=== PATIENT | male | born 1955 | race Hispanic/Latino ===

== ENCOUNTER 2018-04-13 19:34 | Observation (INO) | payer OTHER ==
[~2018-04-13] VITALS: Ht 177.8 cm; Wt 131.1 kg
[~2018-04-13 19:34] MED LIST: ASPIRIN BUFFER325 MG PO; ASPIRIN CHEW81 MG PO; ASPIRIN325 MG PO; BENICAR20 MG PO; COREG12.5 MG PO; COREG3.125 MG PO; CRESTOR10 MG PO; DIOVAN40 MG PO; HYDRALAZINE HCL25 MG PO; IMDUR30 MG PO; ISM30TCR PO; LEVAQUIN750 MG PO; LRT10 PO; MUCDM PO; PACERONE200 MG PO; PEPCID20 MG PO; PLAVIX75 MG PO; PRAVACHOL40 MG PO; PRAVASTATIN SOD40 MG PO; PREDNISONE20 MG PO; ZOCOR20 MG PO; [UNRECOGNIZED DRUG - CODE] NEB
[2018-04-13 20:49] LABS: BASOPHILS # (AUTO) 0.1 (0.0-0.1); BASOPHILS % 0.6 % (0.0-1.0); EOSINOPHILS # (AUTO) 0.2 (0.0-0.4); EOSINOPHILS % 2.2 % (0.0-6.0); HEMATOCRIT 40.8 % (38.2-49.6); HEMOGLOBIN 13.2 g/dL (14.0-18.0); LYMPHOCYTES # (AUTO) 1.8 (1.0-3.2); LYMPHOCYTES % 19.6 % (18.0-39.1); MEAN CORPUSCULAR HEMOGLOBIN 30.6 pg (28-32); MEAN CORPUSCULAR HGB CONC 32.4 g/dL (31-35); MEAN CORPUSCULAR VOLUME 94.4 fL (81-99); MONOCYTES # (AUTO) 0.7 (0.2-0.8); MONOCYTES % 7.5 % (4.4-11.3); NEUTROPHILS # (AUTO) 6.3 (2.1-6.9); NEUTROPHILS % 69.7 % (38.7-80.0); PLATELET COUNT 215 x10e3/uL (140-360); RED BLOOD COUNT 4.32 x10e6/uL (4.3-5.7); RED CELL DISTRIBUTION WIDTH 14.4 % (11.7-14.4)
[2018-04-13 20:59] LABS: INR 1.04; PARTIAL THROMBOPLASTIN TIME 28.8 seconds (23.8-35.5); PROTHROMBIN TIME 12.8 seconds (11.9-14.5)
--- NOTE | 2018-04-13 21:03 | Diagnostic Imaging Report ---
EXAMINATION: CHEST SINGLE (PORTABLE) INDICATION: Chest pain. COMPARISON: Chest x-ray 05/14/2013. FINDINGS: AP view TUBES and LINES: None. LUNGS: Lungs are well inflated. Lungs are clear. There is no evidence of pneumonia or pulmonary edema. PLEURA: No pleural effusion or pneumothorax. HEART AND MEDIASTINUM: The cardiomediastinal silhouette is unremarkable. BONES AND SOFT TISSUES: No acute osseous lesion. Soft tissues are unremarkable. UPPER ABDOMEN: No free air under the diaphragm. IMPRESSION: No acute thoracic abnormality. Signed by: Dr. Jovon Devine M.D. on 04/13/2018 9:00 PM
[2018-04-13 21:11] LABS: ALANINE AMINOTRANSFERASE 17 IU/L (0-55); ALBUMIN 3.7 g/dL (3.5-5.0); ALBUMIN/GLOBULIN RATIO 1.2 (0.8-2.0); ALKALINE PHOSPHATASE 75 IU/L (40-150); ANION GAP 14.4 mmol/L (8-16); BLOOD UREA NITROGEN 13 mg/dL (7-26); BUN/CREATININE RATIO 11 (6-25); CALCIUM 9.4 mg/dL (8.4-10.2); CARBON DIOXIDE 26 mmol/L (22-29); CHLORIDE 108 mmol/L (98-107); CREATINE KINASE 71 IU/L (30-200); CREATININE, SERUM 1.22 mg/dL (0.72-1.25); EST GLOMERULAR FILTRATION RATE 60 ML/MIN (60-); GLUCOSE 112 mg/dL (74-118); POTASSIUM 4.4 mmol/L (3.5-5.1); SODIUM 144 mmol/L (136-145)
[2018-04-13] MEDS ORDERED: DEXTROSE 50% SYRINGE 50 ML IV PRN (23:30)
[2018-04-13] MEDS ORDERED: NITROGLYCERIN 0.4 MG SUBL SL PRN (23:30)
[2018-04-13] MEDS ORDERED: ASPIRIN 81 MG CHEW TAB PO ONE (23:30)
[2018-04-13] MEDS ORDERED: SODIUM CHLORIDE FLUSH 10 ML SYR INJ PRN (23:30)
[2018-04-13] MEDS ORDERED: ASPIRIN 81 MG ENTERIC COATED PO ONE (23:38)
[2018-04-13] MEDS ORDERED: BENICAR20 MG PO (23:45)
[2018-04-14 00:45] VITALS: BP 138/62
[2018-04-14 04:00] VITALS: BP 122/63
[2018-04-14] MEDS: GUAIFENESIN 600MG/DEXTROMETHORPHAN 30MG TABSR PO SCH ×2 (05:01→13:26)
[2018-04-14 05:47] LABS: CHOL/HDL RATIO 12.8 (3.9-4.7); CHOLESTEROL 115 MD/DL (0-199); HDL CHOLESTEROL 9 MG/DL (40-60); LDL CHOLESTEROL 85 MG/DL (60-130); TRIGLYCERIDES 106 MG/DL (0-149)
[2018-04-14 06:01] VITALS: BP 122/63
[2018-04-14 06:18] LABS: CREATINE KINASE 52 IU/L (30-200)
[2018-04-14] MEDS: ALBUTEROL/IPRATROPIUM 3 ML NEB NEB SCH ×2 (06:45→11:35)
[2018-04-14] MEDS: INSULIN REGULAR, HUMAN 100 UNIT/1 ML 3ML VIAL SQ SCH ×2 (07:30→11:30)
[2018-04-14 08:00] VITALS: BP 154/92
[2018-04-14 08:17] VITALS: BP 154/92
--- NOTE | 2018-04-14 08:19 | Consultation ---
DATE OF CONSULTATION: April 14, 2018 REASON FOR CONSULTATION: Shortness of breath and chest pain. HISTORY OF PRESENT ILLNESS: Mr. Yuen is a 63-year-old gentleman with a past medical history as listed below. Apparently, he was a restaurant eating and had some gumbo. About 30 minutes after he ate gumbo, he became short of breath. The patient states he did not have chest pain, although he had mentioned that he had chest pain in the ER. It was mainly shortness of breath. A couple of hours later, he felt better and actually wanted to go home. He states he feels great now, and is keen on going home. Denies any further shortness of breath. No leg edema. No abdominal pain, vomiting or diarrhea. He states he has no chest pain and did not actually have chest pain. REVIEW OF SYSTEMS CONSTITUTIONAL: He has some fatigue and weakness. HEENT: No headache, blurring of vision, seizures, or syncope. CARDIOVASCULAR: Questionable chest pain although the patient denies that he had chest pain at the current time. Had dyspnea. No orthopnea or PND. RESPIRATORY: No cough, fever or expectoration. GI: No abdominal pain, vomiting or diarrhea. : No dysuria, frequency or incontinence. ALLERGIES: MORPHINE, PENICILLIN, ANN INHIBITORS, METRONIDAZOLE. MEDICATIONS: See list. PAST MEDICAL HISTORY: History of hypertension, history of CAD. Had a stent about 5 years back. Had a cath apparently a couple of years back. History of diabetes mellitus, history of CHF. SOCIAL HISTORY: Does not smoke or drink. FAMILY HISTORY: Hypertension, diabetes and CAD. PHYSICAL EXAMINATION GENERAL: Obese gentleman alert, oriented and not in any obvious distress. VITALS: Heart rate is 73, blood pressure is 122/63, respiratory rate 18. HEENT: Atraumatic. NECK: No JVD, bruit, thyromegaly, or lymphadenopathy. CARDIOVASCULAR: First and 2nd heart sounds heard. No murmurs, rubs or gallops appreciated. CHEST: Clear to auscultation. ABDOMEN: Soft and nontender. EXTREMITIES: No edema. LABS: Sodium is 144, potassium 4.4, chloride 108, bicarb is 26, BUN 13, creatinine 1.2. Hemoglobin 13.2, hematocrit 40.8 and platelets are 215,000. White count is 9. EKG shows sinus rhythm at 76 beats per minute. Normal axis. Normal intervals. R-wave progression in V1 to V4. Nonspecific ST-T changes. Small Q-waves in inferior leads. Cardiac enzymes are normal. IMPRESSION 1. Dyspnea. 2. Coronary artery disease with history of stent placement. 3. Hypertension. 4. Diabetes mellitus. 5. Obesity. PLAN 1. Patient states that he had shortness of breath and no chest pain. He states he feels fine now. No further episodes. He is keen on going home. Clinically, the patient is not in CHF. 2. Cardiac enzymes are normal. 3. He is otherwise hemodynamically stable. 4. Okay to discharge the patient home, and he can follow up as an outpatient. Discussed my impression and plan of management with the patient and he understands. As always, I appreciate and thank you very much for your referral. Job#: [id number] MATTEO
[2018-04-14] MEDS ORDERED: ISOSORBIDE MONONITRATE 30 MG TAB CR PO SCH (09:00)
[2018-04-14] MEDS ORDERED: OLMESARTAN MEDOXOMIL 5 MG TABLET PO SCH (09:00)
[2018-04-14] MEDS ORDERED: CARVEDILOL 3.125 MG TAB PO SCH (09:00)
[2018-04-14] MEDS ORDERED: ASPIRIN 81 MG ENTERIC COATED PO SCH (09:00)
[2018-04-14] MEDS ORDERED: PRAVASTATIN 20 MG TAB PO SCH (09:00)
[2018-04-14] MEDS ORDERED: CLOPIDOGREL BISULFATE 75 MG TAB PO SCH (09:00)
[2018-04-14] MEDS ORDERED: ASPIRIN 81 MG CHEW TAB PO SCH (09:00)
[2018-04-14] MEDS ORDERED: LORATADINE 10 MG TAB PO SCH (09:00)
[2018-04-14] MEDS ORDERED: OLMESARTAN 20 MG TAB PO SCH (11:00)
[2018-04-14 12:11] VITALS: BP 124/79
--- NOTE | 2018-04-14 20:43 | Discharge Summary ---
PRINCIPAL DIAGNOSES: 1. Atypical chest pain. 2. Coronary artery disease with history of stent. 3. Hypertension. 4. Morbid obesity. 5. Hyperlipidemia. SECONDARY DIAGNOSIS: Hypertension. CHIEF COMPLAINT: Chest pain. HISTORY OF PRESENT ILLNESS: A 63-year-old man with chest pain. Please refer to the H and P for further details. HOSPITAL COURSE: Patient found to have negative cardiac enzymes. LDL and triglycerides were obtained. Blood pressure controlled. Patient's LDL was 85, triglycerides 106. Patient discharged home after cleared by cardiology. DISCHARGE MEDICATIONS: Per electronic medical record. FOLLOWUP: 1. Follow up with primary care doctor in 1 week. 2. Follow up with cardiology in 1 to 2 weeks. CONDITION ON DISCHARGE: Stable. DISCHARGE LOCATION: Home. TERE MORRELL MD Job#: [id number]
--- NOTE | 2018-04-14 21:02 | History and Physical ---
PRIMARY CARE PHYSICIAN: Dr. Shadi Blanco. CHIEF COMPLAINT: Chest discomfort. HISTORY OF PRESENT ILLNESS: A 63-year-old man with a history of coronary artery disease, now developing chest discomfort. He came to the hospital with mild shortness of breath. He was found to have cardiac enzymes negative. He was admitted for further testing. PAST MEDICAL HISTORY: Coronary artery disease, status post stent, hypertension, hyperlipidemia, atrial fibrillation. PAST SURGICAL HISTORY: Coronary stent placement x3. ALLERGIES: PER ELECTRONIC MEDICAL RECORDS. FAMILY AND SOCIAL HISTORY: The patient denies any alcohol, illicits or cigarettes. MEDICATIONS: Per electronic medical records. REVIEW OF SYSTEMS: Denies any dizziness or shortness of breath, fever or chills or sweats, no nausea, vomiting or diarrhea, headache or blurred vision. PHYSICAL EXAMINATION VITAL SIGNS: Reviewed. GENERAL APPEARANCE: A tired-appearing man resting in the bed. HEENT: Anicteric. Pupils responsive to light. No oral lesions. CARDIOVASCULAR: Normal S1 and S2. LUNGS: Moderate breath sounds, ABDOMEN: Soft and nontender. Nondistended. EXTREMITIES: There is no edema or calf tenderness. NEUROLOGIC: Alert and oriented x3. Moving all extremities. SKIN: Dry. PSYCHIATRIC: Flat affect. LABS: Reviewed. MEDICATIONS: Reviewed. ASSESSMENT: A 63-year-old man. 1. Coronary artery disease with history of stents. 2. Hypertension. 3. Hyperlipidemia. 4. Morbid obesity. 5. Atypical chest pain. PLAN: 1. Cardiac enzymes negative x3. 2. Cleared by cardiology for discharge. 3. LDL was 85, triglycerides 106. 4. The patient on beta shagufta, Plavix, ARB, statin and antihypertensive medication. Likely discharge home later today. Job#: [id number]
== END 2018-04-14 15:33 | disposition home or self-care (01) ==
LOC: ER 19:34 → ERHOLD 23:55 → IMCU 04-14 00:34
PROVIDERS: ADMIT Internal Medicine; ATTEND Internal Medicine
DX: R07.89 Other chest pain (principal); I25.10 Atherosclerotic heart disease of native coronary artery without angina pectoris; E11.9 Type 2 diabetes mellitus without complications; I11.0 Hypertensive heart disease with heart failure; I50.9 Heart failure, unspecified; I25.2 Old myocardial infarction; Z95.5 Presence of coronary angioplasty implant and graft; I48.91 Unspecified atrial fibrillation; E66.01 Morbid (severe) obesity due to excess calories; E78.5 Hyperlipidemia, unspecified; Z68.41 Body mass index [BMI] 40.0-44.9, adult
CPT/HCPCS: 36415 ×2; 71045; 80053; 80061; 82550 ×2; 82553 ×2; 82948; 84484 ×2; 85025; 85610; 85730; 93005; 94640 ×2; 99284; G0378 ×2

== ENCOUNTER 2019-06-15 14:33 | Inpatient (IN) | payer OTHER ==
[~2019-06-15] VITALS: Ht 177.8 cm; Wt 121.1 kg
[2019-06-15] MEDS ORDERED: ASPIRIN 81 MG CHEW TAB PO ONE (14:45)
[2019-06-15 14:57] LABS: BASOPHILS % 0.3 % (0.0-1.0); EOSINOPHILS # (AUTO) 0.3 (0.0-0.4); EOSINOPHILS % 2.5 % (0.0-6.0); HEMATOCRIT 40.6 % (38.2-49.6); HEMOGLOBIN 13.2 g/dL (14.0-18.0); LYMPHOCYTES % 17.3 % (18.0-39.1); MEAN CORPUSCULAR HEMOGLOBIN 30.1 pg (28-32); MEAN CORPUSCULAR HGB CONC 32.5 g/dL (31-35); MEAN CORPUSCULAR VOLUME 92.7 fL (81-99); MONOCYTES # (AUTO) 0.8 (0.2-0.8); MONOCYTES % 6.6 % (4.4-11.3); NEUTROPHILS # (AUTO) 8.6 (2.1-6.9); NEUTROPHILS % 72.9 % (38.7-80.0); PLATELET COUNT 257 x10e3/uL (140-360); RED BLOOD COUNT 4.38 x10e6/uL (4.3-5.7); RED CELL DISTRIBUTION WIDTH 15.2 % (11.7-14.4)
[2019-06-15 15:04] LABS: INR 0.88; PROTHROMBIN TIME 12.4 seconds (11.9-14.5)
[2019-06-15 15:05] LABS: PARTIAL THROMBOPLASTIN TIME 31.4 seconds (23.8-35.5)
[2019-06-15] MEDS ORDERED: SODIUM CHLORIDE 0.9% 1000ML 1,000 ML IV STA (15:09)
[2019-06-15] MEDS ORDERED: MORPHINE SULFATE 2 MG/ML SYR 1ML IV STA (15:09)
[2019-06-15 15:13] LABS: BILIRUBIN,URINE NEGATIVE (NEGATIVE); CLARITY,URINE CLEAR (CLEAR); COLOR,URINE YELLOW (YELLOW); KETONES,URINE NEGATIVE (NEGATIVE); LEUKOCYTE ESTERASE ,URINE NEGATIVE (NEGATIVE); NITRITE,URINE NEGATIVE (NEGATIVE); PROTEIN,URINE DIPSTICK NEGATIVE (NEGATIVE); URINE UROBILINOGEN 0.2 mg/dL (0.2 - 1)
[2019-06-15 15:13] LABS: ALBUMIN 3.8 g/dL (3.5-5.0); CALCIUM 9.6 mg/dL (8.4-10.2); CREATININE, SERUM 1.27 mg/dL (0.72-1.25)
[2019-06-15] MEDS ORDERED: PANTOPRAZOLE 40 MG 10ML VIAL IV NR (15:15)
[2019-06-15] MEDS ORDERED: ONDANSETRON HCL INJ 2MG/ML 2ML 2 MG/ML VIAL IV NR (15:15)
[2019-06-15 15:19] LABS: CREATINE KINASE MB 1.4 ng/mL (0-5.0)
[2019-06-15] MEDS ORDERED: ASPIRIN 81 MG CHEW TAB PO NR (15:30)
[2019-06-15] MEDS ORDERED: ONDANSETRON HCL INJ 2MG/ML 2ML 2 MG/ML VIAL IV PRN (15:30)
[2019-06-15] MEDS ORDERED: NITROGLYCERIN 0.4 MG SUBL SL PRN (15:30)
[2019-06-15] MEDS ORDERED: DEXTROSE 50% SYRINGE 50 ML IV PRN ×2 (15:30→18:00)
[2019-06-15] MEDS ORDERED: ENOXAPARIN SODIUM INJ 100 MG/ML SYR SC SCH (15:30)
[2019-06-15 15:32] LABS: BACTERIA,URINE FEW /HPF; WBC,URINE (MAN) 0-5 /HPF (0-5)
[2019-06-15 15:33] LABS: MUCUS,URINE MODERATE (RARE)
[2019-06-15 15:50] LABS: MAGNESIUM 2.2 MG/DL (1.3-2.1)
--- NOTE | 2019-06-15 16:00 | Diagnostic Imaging Report ---
Chest, 1 view, 06/15/2019. History: Chest pain. Comparison: 04/13/2018. Findings: The cardiomediastinal silhouette and pulmonary vasculature are within normal limits for a portable exam. There is no focal consolidation or pleural effusion. There are no acute osseous or soft tissue abnormalities. Impression: No acute cardiopulmonary abnormality. Signed by: Aron Parks on 06/15/2019 3:57 PM
[2019-06-15 16:10] LABS: THYROID STIMULATING HORMONE 4.299 uIU/mL (0.350-4.940)
[2019-06-15] MEDS: METOPROLOL TARTRATE 25 MG TAB PO SCH (16:20)
[2019-06-15] MEDS: FAMOTIDINE 20 MG/2 ML VIAL IV SCH (16:20)
[2019-06-15] MEDS: ENOXAPARIN SODIUM INJ 100 MG/ML SYR SC SCH (16:21)
[2019-06-15] MEDS ORDERED: INSULIN REGULAR, HUMAN 100 UNIT/1 ML 3ML VIAL SQ SCH (16:30)
[2019-06-15] MEDS ORDERED: LEVALBUTEROL HCL SOLN NEBU 0.63 MG/3 ML NEB INH PRN (17:45)
[2019-06-15] MEDS ORDERED: POLYETHYLENE GLYCOL 3350 17 GM PACK PO PRN (18:00)
[2019-06-15] MEDS ORDERED: BISACODYL 5 MG TAB EC PO PRN (18:00)
[2019-06-15] MEDS ORDERED: FENTANYL CITRATE/PF 100MCG/2 ML INJ IV SCH (18:00)
--- NOTE | 2019-06-15 18:18 | NUR ---
Received patient from ER. Respiration even and unlabored without SOB. Awake, alert.
[2019-06-15 18:22] VITALS: BP 136/77
[2019-06-15 18:46] VITALS: BP 136/77
[2019-06-15] MEDS ORDERED: FENTANYL CITRATE/PF 100MCG/2 ML INJ IV PRN (19:00)
[2019-06-15] MEDS: CARVEDILOL 3.125 MG TAB PO SCH (19:03)
--- NOTE | 2019-06-15 19:12 | NUR ---
Report given to security shift supervisor. Respiration even and unlabored without SOB. Call light in reach.
[2019-06-15 20:00] VITALS: BP 127/73
--- NOTE | 2019-06-15 20:00 | NUR ---
pt received. pt assessed. no ss of distress noted. tele in place per orders. no co pain at time. will cont to follow poc. call burk within reach.
[2019-06-15 20:08] VITALS: BP 127/73
[2019-06-15] MEDS ORDERED: PRAVASTATIN 20 MG TAB PO SCH (21:00)
--- NOTE | 2019-06-15 22:08 | NUR ---
spoke to lul barney for dr trejo in regards to insulin. new orders received.
[2019-06-15] MEDS: INSULIN REGULAR, HUMAN 100 UNIT/1 ML 3ML VIAL SQ SCH (22:17)
--- NOTE | 2019-06-15 22:27 | NUR ---
Cardiology Consult Dictation# [id number]
[2019-06-15] MEDS ORDERED: SODIUM CHLORIDE 0.9% 1000ML 1,000 ML IV SCH (22:30)
--- NOTE | 2019-06-15 22:44 | NUR ---
blood collected and sent to lab per orders. pt tolerated well. no distress noted. call burk within reach.
--- NOTE | 2019-06-15 22:48 | NUR ---
consent signed at time. no ss of distress noted. call burk within reach.
--- NOTE | 2019-06-15 23:10 | NUR ---
spoke to radiology in regards to ct. spoke to dr guerrero regarding ct orders. ok to do ct in am 06/16/19 after labs. notified radiology of md orders.
[2019-06-15 23:24] LABS: CREATINE KINASE MB 2.3 ng/mL (0-5.0)
[2019-06-15 23:58] VITALS: BP 124/64
[2019-06-16] VITALS (13 sets, daily range): BP systolic 130–174; BP diastolic 63–89
--- NOTE | 2019-06-16 00:06 | NUR ---
pt made npo at time per orders. pt verbalized understanding. no ss of distress noted. call burk within reach.
[2019-06-16] MEDS: METOPROLOL TARTRATE 25 MG TAB PO SCH (04:00)
[2019-06-16] MEDS: FAMOTIDINE 20 MG/2 ML VIAL IV SCH (04:48)
[2019-06-16] MEDS: ENOXAPARIN SODIUM INJ 100 MG/ML SYR SC SCH (05:01)
--- NOTE | 2019-06-16 05:15 | NUR ---
tele leads replaced at time. no distress noted. call burk within reach.
[2019-06-16 05:38] LABS: BASOPHILS # (AUTO) 0.1 (0.0-0.1); BASOPHILS % 0.5 % (0.0-1.0); EOSINOPHILS # (AUTO) 0.3 (0.0-0.4); EOSINOPHILS % 2.5 % (0.0-6.0); HEMATOCRIT 37.5 % (38.2-49.6); HEMOGLOBIN 12.1 g/dL (14.0-18.0); LYMPHOCYTES # (AUTO) 2.1 (1.0-3.2); LYMPHOCYTES % 19.8 % (18.0-39.1); MEAN CORPUSCULAR HEMOGLOBIN 30.1 pg (28-32); MEAN CORPUSCULAR HGB CONC 32.3 g/dL (31-35); MEAN CORPUSCULAR VOLUME 93.3 fL (81-99); MONOCYTES # (AUTO) 0.9 (0.2-0.8); NEUTROPHILS # (AUTO) 7.3 (2.1-6.9); NEUTROPHILS % 68.7 % (38.7-80.0); PLATELET COUNT 223 x10e3/uL (140-360); RED BLOOD COUNT 4.02 x10e6/uL (4.3-5.7); RED CELL DISTRIBUTION WIDTH 15.4 % (11.7-14.4)
--- NOTE | 2019-06-16 05:48 | Consultation ---
DATE OF CONSULTATION: 06/15/2019 Cardiology Consultation REQUESTING PHYSICIAN: Dr. Storey. REASON FOR CONSULTATION: Chest pain. HISTORY OF PRESENT ILLNESS: This is a 64-year-old male with history of coronary artery disease status post myocardial infarction x2 and PCI x3, congestive heart failure, hypertension, hyperlipidemia, diabetes mellitus, and chronic kidney disease, who presents with complaints of chest pain. The patient reports he had been walking to the car from [place] when he developed sudden onset of dyspnea and chest pressure, described it as 10/10 in severity with radiation to the back. His chest pain lasted over an hour before eventually resolving after taking three sublingual nitroglycerin. He does endorse orthopnea for the last couple of weeks, but denies any edema or PND. REVIEW OF SYSTEMS: Negative except as per HPI. PAST MEDICAL HISTORY: 1. Coronary artery disease, status post stent and myocardial infarction. 2. Congestive heart failure. 3. Hypertension. 4. Hyperlipidemia. 5. Diabetes mellitus. 6. Chronic kidney disease. PAST SURGICAL HISTORY: Denies. ALLERGIES: PLEASE SEE EMR. MEDICATIONS: Please see medication list. SOCIAL HISTORY: Denies tobacco, alcohol, or illicit drugs. FAMILY HISTORY: Pertinent for mother who of myocardial infarction at age of 67. PHYSICAL EXAMINATION: VITAL SIGNS: Temperature 97.8 degrees, pulse 97, respiratory rate 17, blood pressure 136/72, and oxygen saturation 96% on room air. GENERAL: Awake, alert, well-developed, well-nourished man. HEENT: Normocephalic and atraumatic. Pupils equal. No scleral icterus. NECK: Supple. No thyromegaly or cervical lymphadenopathy. No carotid bruits. LUNGS: Clear to auscultation bilaterally. No wheezes or crackles. CARDIOVASCULAR: Normal rate. Regular rhythm. No murmur. Normal S1 and S2. ABDOMEN: Soft and nontender. EXTREMITIES: No edema. NEUROLOGIC: Nonfocal exam. LABORATORY DATA: WBC 11.8, hemoglobin 13.2, hematocrit 40.6, and platelets 257. Potassium 4, chloride 104, CO2 of 26, BUN 23, and creatinine 0.27. Troponin less than 0.002. BNP 33.2. Chest x-ray, no acute cardiopulmonary abnormality. EKG, normal sinus rhythm, inferior infarct, age undetermined. Cannot rule out anterior infarct, age undetermined. IMPRESSION: 1. Chest pain. 2. Coronary artery disease, status post myocardial infarction. 3. Congestive heart failure. 4. Hypertension. 5. Hyperlipidemia. 6. Diabetes mellitus. RECOMMENDATIONS: Trend cardiac markers to rule out myocardial infarction. Monitor the patient on telemetry and do an echocardiogram. CTA of the chest to evaluate for aortic dissection if he rules out for myocardial infarction. Continue home cardiac medications. Thank you for this consult. We will continue to follow. Samina Guillory MD ABS/MODL /[id number] MTDD
[2019-06-16 06:03] LABS: CREATINE KINASE MB 2.3 ng/mL (0-5.0)
[2019-06-16 06:36] LABS: ALBUMIN 3.5 g/dL (3.5-5.0); ALBUMIN/GLOBULIN RATIO 1.1 (0.8-2.0); ANION GAP 16.9 mmol/L (8-16); CALCIUM 9.1 mg/dL (8.4-10.2); CHOL/HDL RATIO 5.2 (3.9-4.7); CREATININE, SERUM 1.26 mg/dL (0.72-1.25); PHOSPHORUS 3.1 MG/DL (2.3-4.7); POTASSIUM 3.9 mmol/L (3.5-5.1)
--- NOTE | 2019-06-16 06:57 | NUR ---
dr guerrero paged at time regarding lab results. awaiting return phone call. primary nurse made aware.
--- NOTE | 2019-06-16 07:04 | NUR ---
Received patient sitting on the bed, respiration even and unlabored without SOB. Call light in reach.
[2019-06-16] MEDS: INSULIN REGULAR, HUMAN 100 UNIT/1 ML 3ML VIAL SQ SCH ×4 (07:30→20:09)
--- NOTE | 2019-06-16 08:25 | NUR ---
Spoke with Dr. Guillory regarding CTA scan and GFR level per radiology. New order to hold off on CTA for now and stop fluids. Order noted and informed radiology
[2019-06-16] MEDS ORDERED: ONDANSETRON HCL 4 MG ORAL DISINTEGRATING TAB PO PRN (08:30)
[2019-06-16] MEDS: ASPIRIN 81 MG ENTERIC COATED PO SCH (09:00)
[2019-06-16] MEDS: OLMESARTAN 20 MG TAB PO SCH (09:00)
[2019-06-16] MEDS: ISOSORBIDE MONONITRATE 30 MG TAB CR PO SCH (09:00)
[2019-06-16] MEDS: CARVEDILOL 3.125 MG TAB PO SCH (09:00)
[2019-06-16] MEDS ORDERED: ASPIRIN 81 MG CHEW TAB PO SCH (09:00)
[2019-06-16] MEDS: LORATADINE 10 MG TAB PO SCH (09:00)
[2019-06-16] MEDS ORDERED: CLOPIDOGREL BISULFATE 75 MG TAB PO SCH (09:00)
[2019-06-16] MEDS: CLOPIDOGREL BISULFATE 75 MG TAB PO SCH (09:00)
[2019-06-16] MEDS: DOCUSATE SODIUM 100 MG CAP PO SCH ×2 (09:00→17:38)
--- NOTE | 2019-06-16 09:20 | NUR ---
Dr. Guillory called and informed to hold off on stress test at this time and patient may need a heart cath
[2019-06-16] MEDS ORDERED: CARVEDILOL12.5 MG PO (09:23)
[2019-06-16] MEDS ORDERED: ATORVASTATIN CA20 MG PO (09:24)
[2019-06-16] MEDS ORDERED: LASIX40 MG PO (09:25)
[2019-06-16] MEDS ORDERED: METFORMIN HCL500 MG PO (09:26)
[2019-06-16] MEDS ORDERED: HEPARIN SOD (PORCINE) 1000 UNIT/ML 30ML ONE (11:36)
[2019-06-16] MEDS ORDERED: FENTANYL CITRATE/PF 100MCG/2 ML INJ ONE (11:37)
[2019-06-16] MEDS ORDERED: MIDAZOLAM HCL 2 MG/2 ML VIAL ONE (11:37)
[2019-06-16] MEDS ORDERED: VERAPAMIL HCL 2.5 MG/ML 2 ML VIAL ONE (11:37)
[2019-06-16] MEDS ORDERED: LIDOCAINE HCL 2% LOCAL 20 ML VIAL ONE (11:37)
[2019-06-16] MEDS ORDERED: IOPAMIDOL 370 MG/ML 200 ML INFUS..BTL INJ ONE (11:38)
[2019-06-16] MEDS ORDERED: SODIUM CHLORIDE 0.9% 1000ML 1,000 ML ONE (11:38)
[2019-06-16] MEDS ORDERED: HEPARIN SOD/SOD CHLORIDE 2,000 ML ONE (11:38)
[2019-06-16] MEDS ORDERED: NITROGLYCERIN/D5W 200 MCG/ML 250 ML ONE (11:38)
--- NOTE | 2019-06-16 12:15 | NUR ---
Patient went to heart cath at this time
--- NOTE | 2019-06-16 13:00 | NUR ---
Continuity of care post procedure, review of procedural findings and medications given. Patient drowsy, easily aroused. maintains airway and room air saturations of 98-99%. No gross issues of pressure, pain, pallor or dysrhythmia. IV site patent with NS 0.9% at KVO by dial-flow. patient hemodynamically stable with hemostasis right radial TR band CDI w/o s/s of bleeding. [facility] w/o incident. [facility] [place] [facility] [place] Coronary [place] and WES to Circumflex Sheath puller: Don LOCK FITTER - Large TR band 14ml Meds Given Intra-Procedure Sedatives Versed - 2 mg Fentanyl - 50 mcg Radial Cocktail IA by Heparin - 3000 Units Nitro - 200mcg Verapamil - 2.5mg Anticoagulants Heparin - 9000 units Fluids Input - 300ml Output - dtv Contrast Isovue 370 - 125ml Other Meds Plavix 300mg Aspirin 325mg
[2019-06-16] MEDS ORDERED: CLOPIDOGREL BISULFATE 75 MG TAB ONE (13:05)
[2019-06-16] MEDS ORDERED: ASPIRIN 325 MG TAB ONE (13:05)
--- NOTE | 2019-06-16 15:10 | NUR ---
TR Band successfully deflated over past 45 minutes. clean dressing applied aseptically. education provided and pt repeated back to treat wrist as broken, and not to push/pull/submerge fo 1 week.
--- NOTE | 2019-06-16 15:30 | NUR ---
telephone report provided to Jessica CHIANG. Alert oriented and appropriate, PERRLA, respirations even and unlabored to room air. Pulses x4 extremities equal and strong. Cap fill brisk < 3 sec. + neurovascular function to right hand Skin warm and dry integrity appears intact overall . IV 20g to right AC area presents healthy w/o s/s of infiltration or complaint. Abdomen soft and supple. pt offered toileting, denies need to urinate or defecate. No personal affects with patient. Family not available. Pt verbalizes understanding of POC. Dr Guillory with patient at this time. Patient transferred from PACU 20 back to MS1-100 by general labor escort on bed, telemetry pack in use. Currently w/o complaint of pain or need. right radial dressing CDI- cgf
--- NOTE | 2019-06-16 15:30 | NUR ---
Patient returned from clinical lab specialist at this time. Right radial wrist bandage in place. Radial pulse palpated. No c/o pain.
--- NOTE | 2019-06-16 17:37 | Progress Note ---
DATE: 06/16/2019 Cardiology Progress Note SUBJECTIVE: The patient denies chest pain or shortness of breath. OBJECTIVE: VITAL SIGNS: Temperature 98.3 degrees, pulse 77, respiratory rate 20, blood pressure 174/89, oxygen saturation 100% on room air. GENERAL: Awake, alert, in no acute distress. LUNGS: Clear to auscultation bilaterally. No wheezes or crackles. CARDIOVASCULAR: Normal rate, regular rhythm. No murmur. Normal S1, S2. ABDOMEN: Soft, nontender. EXTREMITIES: No edema. CARDIAC MEDICATIONS: Enoxaparin 100 mg subcu q.12 hours, aspirin 81 mg p.o. daily, isosorbide mononitrate 60 mg p.o. daily, olmesartan 5 mg p.o. daily, metoprolol tartrate 25 mg p.o. q.12 hours, Plavix 75 mg p.o. daily, atorvastatin 10 mg p.o. at bedtime, carvedilol 25 mg p.o. b.i.d. LABORATORY DATA: WBC 10.63, hemoglobin 12.1, hematocrit 37.5, platelets 223. Sodium 141, potassium 3.9, chloride 106, CO2 of 22, BUN 22, creatinine 1.26. Troponin 0.303. Cholesterol 125, triglycerides 147, LDL 72, and HDL 24. TELEMETRY: Normal sinus rhythm. IMPRESSION: 1. Ibs-TA-[id number] myocardial infarction. 2. Chronic systolic heart failure. 3. Coronary artery disease status post myocardial infarction and stents of the left anterior descending artery. 4. Hypertension. 5. Hyperlipidemia. 6. Diabetes mellitus. RECOMMENDATIONS: The patient ruled in for myocardial infarction overnight and was taken to the cardiac catheterization laboratory with finding of significant stenosis of the circumflex, status post PCI. Continue dual anti-platelet therapy. Discontinue metoprolol and start carvedilol given elevated blood pressure and systolic heart failure. Continue ARB. Given patient ruled in for [id number] myocardial infarction, we will not proceed with CT of the chest as this is less likely to be the cause of his chest pain. LDL is close to goal. We will increase atorvastatin. Continue current cardiac medications otherwise. Thank you for this consult. We will continue to follow. Samina Guillory MD ABS/MODL /[id number]
[2019-06-16] MEDS: CARVEDILOL 12.5 MG TAB PO SCH (17:38)
[2019-06-16] MEDS: FAMOTIDINE 20 MG TAB PO SCH (17:40)
--- NOTE | 2019-06-16 18:56 | NUR ---
Report given to shift stacker. Patient awake lying in bed with eyes open. respiration even and unlabored without SOB. Call light in reach.
[2019-06-16] MEDS ORDERED: ATORVASTATIN 20 MG TAB PO SCH ×2 (21:00)
[2019-06-16] MEDS ORDERED: ATORVASTATIN 40 MG TAB PO SCH (21:00)
[2019-06-16] MEDS ORDERED: MELATONIN 5 MG TABLET PO PRN (22:15)
[2019-06-17 00:13] VITALS: BP 127/58
[2019-06-17] MEDS: FAMOTIDINE 20 MG TAB PO SCH (03:30)
[2019-06-17 04:00] VITALS: BP 141/84
[2019-06-17 06:22] LABS: BASOPHILS # (AUTO) 0.1 (0.0-0.1); BASOPHILS % 0.5 % (0.0-1.0); EOSINOPHILS # (AUTO) 0.2 (0.0-0.4); HEMATOCRIT 38.8 % (38.2-49.6); LYMPHOCYTES # (AUTO) 1.7 (1.0-3.2); LYMPHOCYTES % 17.2 % (18.0-39.1); MEAN CORPUSCULAR HEMOGLOBIN 29.3 pg (28-32); MEAN CORPUSCULAR HGB CONC 30.9 g/dL (31-35); MEAN CORPUSCULAR VOLUME 94.6 fL (81-99); MONOCYTES # (AUTO) 0.7 (0.2-0.8); MONOCYTES % 7.1 % (4.4-11.3); NEUTROPHILS % 72.8 % (38.7-80.0); PLATELET COUNT 229 x10e3/uL (140-360); RED CELL DISTRIBUTION WIDTH 15.3 % (11.7-14.4)
[2019-06-17 06:47] LABS: ANION GAP 12.9 mmol/L (8-16); BLOOD UREA NITROGEN 19 mg/dL (7-26); BUN/CREATININE RATIO 17 (6-25); CALCIUM 9.3 mg/dL (8.4-10.2); CARBON DIOXIDE 25 mmol/L (22-29); CHLORIDE 106 mmol/L (98-107); CREATININE, SERUM 1.13 mg/dL (0.72-1.25); EST GLOMERULAR FILTRATION RATE > 60 ML/MIN (60-); GLUCOSE 143 mg/dL (74-118); POTASSIUM 3.9 mmol/L (3.5-5.1); SODIUM 140 mmol/L (136-145)
--- NOTE | 2019-06-17 07:00 | NUR ---
BEDSIDE SHIFT REPORT RECEIVED FROM ACADEMIC SUPPORT DIRECTOR RN. PT DENIES NEEDS AT THIS TIME.
[2019-06-17] MEDS: INSULIN REGULAR, HUMAN 100 UNIT/1 ML 3ML VIAL SQ SCH (07:30)
[2019-06-17] MEDS ORDERED: Atorvastatin PO (08:29)
[2019-06-17 08:33] VITALS: BP 135/63
[2019-06-17] MEDS: OLMESARTAN 20 MG TAB PO SCH (08:48)
[2019-06-17] MEDS: ASPIRIN 81 MG ENTERIC COATED PO SCH (08:48)
[2019-06-17] MEDS: LORATADINE 10 MG TAB PO SCH (08:48)
[2019-06-17] MEDS: DOCUSATE SODIUM 100 MG CAP PO SCH (08:48)
[2019-06-17] MEDS: ISOSORBIDE MONONITRATE 30 MG TAB CR PO SCH (08:48)
[2019-06-17] MEDS: CARVEDILOL 12.5 MG TAB PO SCH (08:48)
[2019-06-17] MEDS: CLOPIDOGREL BISULFATE 75 MG TAB PO SCH (08:49)
[2019-06-17 09:49] VITALS: BP 135/63
--- NOTE | 2019-06-17 10:29 | NUR ---
OK FROM STANDPOINT OF DR. CANELA, CARDIOLOGY FOR PT TO DISCHARGE HOME ON CURRENT MEDICATIONS AND FOLLOW UP IN 2 WEEKS IN HER OFFICE.
--- NOTE | 2019-06-17 11:39 | NUR ---
PT WHEELED TO PRIVATE TRANSPORTATION BY THIS NURSE. PT DENIED FURTHER NEEDS.
--- NOTE | 2019-06-17 18:38 | Progress Note ---
DATE: 06/17/2019 Cardiology Progress Note SUBJECTIVE: The patient denies chest pain or shortness of breath. He had cardiac catheterization yesterday which revealed significant stenosis of his circumflex, status post percutaneous coronary intervention. OBJECTIVE: VITAL SIGNS: Temperature 97.1 degrees, pulse 66, respiratory rate 18, blood pressure 135/63, and oxygen saturation 99% on room air. GENERAL: Awake, alert, no acute distress. LUNGS: Clear to auscultation bilaterally. No wheezes or crackles. CARDIOVASCULAR: Normal rate. Regular rhythm. No murmur. Normal S1, S2. ABDOMEN: Soft, nontender. EXTREMITIES: No edema. Palpable right radial pulse. No hematoma appreciated. CARDIAC MEDICATIONS: Plavix 75 mg p.o. daily, carvedilol 25 mg p.o. b.i.d., isosorbide mononitrate 60 mg p.o. daily, olmesartan 5 mg p.o. daily, aspirin 81 mg p.o. daily, and atorvastatin 40 mg p.o. at bedtime. LABORATORY DATA: WBC 9.61, hemoglobin 12, hematocrit 38.8, and platelets 229. Sodium 140, potassium 3.9, chloride 106, CO2 of 25, BUN 19, and creatinine 1.13. TELEMETRY: Normal sinus rhythm. IMPRESSION: 1. Non-ST elevation myocardial infarction. 2. Chronic systolic heart failure. 3. Coronary artery disease, status post myocardial infarction and stents of the left anterior descending artery and now left circumflex. 4. Hypertension. 5. Hyperlipidemia. 6. Diabetes mellitus. RECOMMENDATIONS: The patient is status post percutaneous coronary intervention of the left circumflex artery. He was counseled on the importance of dual anti-platelet therapy for one year. Continue aspirin and Plavix. Given the patient's chronic systolic heart failure, he is to continue carvedilol and olmesartan for optimal heart failure therapy. Discussed heart healthy low-sodium diet. Atorvastatin has been increased given his coronary artery disease to further lower his LDL target is less than 70. Blood pressure is adequately controlled on current regimen. Continue current cardiac medications. Thank you for this consult. We will continue to follow. Samina Guillory MD ABS/MODL /[id number]
[2019-06-18] MEDS ORDERED: GLIPIZIDE5 MG PO (06:45)
[2019-06-18] MEDS ORDERED: CARVEDILOL25 MG PO (06:45)
[2019-06-18] MEDS ORDERED: CLOPIDOGREL75 MG PO (06:45)
[2019-06-18] MEDS ORDERED: ISOSORBIDE MON120 MG PO (06:45)
[2019-06-18] MEDS ORDERED: ATORVASTATIN CA20 MG PO (06:45)
[2019-06-18] MEDS ORDERED: NITROGLYCERIN0.4 MG SL (06:45)
--- NOTE | 2019-06-18 23:01 | Discharge Summary ---
ADMISSION DIAGNOSES: Severe chest pain, type 2 diabetes, hypertension complicated by coronary artery disease and chronic systolic congestive heart failure, and morbid obesity. DISCHARGE DIAGNOSES: Severe chest pain, type 2 diabetes, hypertension complicated by coronary artery disease and chronic systolic congestive heart failure, and morbid obesity and non-ST segment elevation myocardial infarction. HISTORY: CAD, [place], hypertension, chronic systolic CHF, diabetes, and kidney stones. SURGICAL HISTORY: PCI x3. FAMILY HISTORY: The patient's dad had diabetes. The patient's mom had a heart attack and stroke. SOCIAL HISTORY: Occasional alcohol use. HOSPITAL COURSE: A 64-year-old male who is having severe extreme pressure in central chest that radiated down his left arm around 2 o'clock after eating. He took three nitroglycerin tabs. The last time he claimed he took morphine and put him in a coma. On admission, chest x-ray was negative. Troponins were initially negative and the 3rd one was 0.303. Cardiology was consulted and the patient was taken to laborer/key man where he had significant stenosis of the circumflex and PCI was placed. The patient was given a new prescription for Lipitor. He is already on Plavix and aspirin. His metoprolol was changed to Coreg. He will follow up with primary care in 1 to 2 weeks and Cardiology as discussed. The patient understands discharge instructions and agrees to plan. Vital signs stable, patient afebrile. Dictated by Jennifer Ramirez NP MD CHRISTIE Isabel/JOCE /[id number]
--- NOTE | 2019-08-30 11:49 | Operative Report ---
DATE OF PROCEDURE: SURGEON: Efraín Campos MD INDICATION FOR PROCEDURE: Non-ST elevation [place]. PREPROCEDURE ASSESSMENT: Risks, benefits, and alternatives to treatment were explained to the patient prior to the procedure. The patient was deemed to be an appropriate candidate for moderate sedation. MEDICATIONS: Please see nursing notes for medications administered during the procedure. PROCEDURES PERFORMED: 1. Coronary angiography. 2. PCI to the left circumflex using WES x1. PROCEDURE DETAILS: The patient was brought to the cardiac catheterization laboratory in a fasting state. A 6-Grenadian Slender sheath was inserted in the right radial artery using modified Seldinger technique. Coronary angiography was performed using 5-Grenadian Anusha radial catheter and a 6-Grenadian JR4 catheter to engage the left and right coronary system respectively, which demonstrated patent multiple stents in the LAD and severe 90% hazy appearing lesion of left circumflex just prior to the previously placed stent. We decided to proceed with intervention of the left circumflex IV boluses with heparin were given to maintain ACT near 300. XB 3.5 6-Grenadian guiding catheter was used, which provided adequate support. The lesion was crossed using [employer] sloppy wire direct stenting was performed with a 4.0 x 12 mm Synergy stent despite excellent angiographic result without any residual dissection, thrombus, or spasm. All catheters were removed over a wire. Access site was closed using TR band device. The patient tolerated the procedure well. There were no immediate complications. GRAFTS AND IMPLANTS: WES x1. SPECIMEN REMOVED: None. ESTIMATED BLOOD LOSS: 20 mL. COMPLICATIONS: None. FINDINGS: 1. Patent stent in the LAD with [id number]-[id number] in-stent restenosis. 2. 90% hazy appearing lesion of the mid circumflex, status post WES x1 with excellent angiographic results. FINAL RECOMMENDATIONS: 1. Continue aspirin, Plavix indefinitely. 2. Follow up in clinic 2 weeks post discharge. MD ILDA Mayer/JOCE /[id number]
== END 2019-06-17 11:20 | disposition home or self-care (01) | DRG 246 ==
LOC: ER 14:33 → ERHOLD 15:16 → MED/SURG 18:06
PROVIDERS: ADMIT Internal Medicine; ATTEND Internal Medicine
PROC: B2111ZZ Fluoroscopy of Multiple Coronary Arteries using Low Osmolar Contrast (ICD-10-PCS; principal; 2019-06-16)
PROC: 027034Z Dilation of Coronary Artery, One Artery with Drug-eluting Intraluminal Device, Percutaneous Approach (ICD-10-PCS; principal; 2019-06-16)
PROC: 4A023N7 Measurement of Cardiac Sampling and Pressure, Left Heart, Percutaneous Approach (ICD-10-PCS; principal; 2019-06-16)
DX: T82.855A Stenosis of coronary artery stent, initial encounter (principal); I21.4 Non-ST elevation (NSTEMI) myocardial infarction; Z68.41 Body mass index [BMI] 40.0-44.9, adult; I50.22 Chronic systolic (congestive) heart failure; I13.0 Hypertensive heart and chronic kidney disease with heart failure and stage 1 through stage 4 chronic kidney disease, or unspecified chronic kidney disease; I25.10 Atherosclerotic heart disease of native coronary artery without angina pectoris; Z95.5 Presence of coronary angioplasty implant and graft; E11.65 Type 2 diabetes mellitus with hyperglycemia; E66.01 Morbid (severe) obesity due to excess calories; E83.41 Hypermagnesemia; I25.2 Old myocardial infarction; E78.5 Hyperlipidemia, unspecified; N18.9 Chronic kidney disease, unspecified; Z83.3 Family history of diabetes mellitus; Z82.3 Family history of stroke; Z82.49 Family history of ischemic heart disease and other diseases of the circulatory system; Z72.89 Other problems related to lifestyle; Z79.82 Long term (current) use of aspirin; Z79.84 Long term (current) use of oral hypoglycemic drugs
CPT/HCPCS: 36415; 71045; 80048; 80053; 80061; 81001; 82550; 82553; 82948; 83036; 83690; 83735; 83880; 84100; 84443; 84484; 85025; 85610; 85730; 87086; 92928; 93005; 93306; 93454; 96372; 96376; 99284; C1874; C1887; J1644; J1650; J1817; J2001; J2250; J2405; J3010; J7030; Q9967

== ENCOUNTER 2019-06-17 23:48 | Observation (INO) | payer OTHER ==
[~2019-06-17] VITALS: Ht 177.8 cm; Wt 119.1 kg
[~2019-06-17 23:48] MED LIST changes: +ATORVASTATIN CA20 MG PO; +Atorvastatin PO; +CARVEDILOL12.5 MG PO; +LASIX40 MG PO; +METFORMIN HCL500 MG PO
[2019-06-18] MEDS ORDERED: ASPIRIN 81 MG CHEW TAB PO ONE
[2019-06-18] MEDS ORDERED: NITROGLYCERIN 2% OINT 1 GM PKT ONE (00:44)
[2019-06-18] MEDS ORDERED: NITROGLYCERIN 2% OINT 1 GM PKT TOP ONE (00:45)
[2019-06-18 00:46] LABS: BASOPHILS % 0.3 % (0.0-1.0); EOSINOPHILS # (AUTO) 0.2 (0.0-0.4); HEMATOCRIT 38.7 % (38.2-49.6); HEMOGLOBIN 12.3 g/dL (14.0-18.0); LYMPHOCYTES # (AUTO) 2.2 (1.0-3.2); LYMPHOCYTES % 18.4 % (18.0-39.1); MEAN CORPUSCULAR HEMOGLOBIN 29.7 pg (28-32); MEAN CORPUSCULAR HGB CONC 31.8 g/dL (31-35); MEAN CORPUSCULAR VOLUME 93.5 fL (81-99); MONOCYTES # (AUTO) 0.9 (0.2-0.8); MONOCYTES % 7.3 % (4.4-11.3); NEUTROPHILS # (AUTO) 8.4 (2.1-6.9); NEUTROPHILS % 71.7 % (38.7-80.0); PLATELET COUNT 252 x10e3/uL (140-360); RED BLOOD COUNT 4.14 x10e6/uL (4.3-5.7); RED CELL DISTRIBUTION WIDTH 15.2 % (11.7-14.4)
[2019-06-18 00:57] LABS: INR 0.92; PROTHROMBIN TIME 12.9 seconds (11.9-14.5)
[2019-06-18 00:58] LABS: PARTIAL THROMBOPLASTIN TIME 25.9 seconds (23.8-35.5)
[2019-06-18 01:06] LABS: ALBUMIN 3.5 g/dL (3.5-5.0); ANION GAP 12.9 mmol/L (8-16); CALCIUM 9.4 mg/dL (8.4-10.2); CREATININE, SERUM 1.3 mg/dL (0.72-1.25); POTASSIUM 3.9 mmol/L (3.5-5.1)
[2019-06-18 01:13] LABS: CREATINE KINASE MB 3.7 ng/mL (0-5.0)
[2019-06-18] MEDS ORDERED: ONDANSETRON HCL INJ 2MG/ML 2ML 2 MG/ML VIAL IV PRN (01:45)
[2019-06-18] MEDS ORDERED: DEXTROSE 50% SYRINGE 50 ML IV PRN (01:45)
[2019-06-18] MEDS ORDERED: SODIUM CHLORIDE FLUSH 10 ML SYR INJ PRN (01:45)
--- NOTE | 2019-06-18 02:58 | Diagnostic Imaging Report ---
EXAMINATION: CHEST SINGLE (PORTABLE) INDICATION: Short of breath COMPARISON: Chest radiograph 06/15/2019 FINDINGS: AP view TUBES and LINES: None. LUNGS: Lungs are well inflated. Lungs are clear. There is no evidence of pneumonia or pulmonary edema. PLEURA: No pleural effusion or pneumothorax. HEART AND MEDIASTINUM: The cardiomediastinal silhouette is unremarkable. Left coronary stent. BONES AND SOFT TISSUES: No acute osseous lesion. Soft tissues are unremarkable. UPPER ABDOMEN: No free air under the diaphragm. IMPRESSION: No acute thoracic radiographic abnormality. Left coronary stent. Signed by: Bronson Sharma DO on 06/18/2019 2:55 AM
--- NOTE | 2019-06-18 06:04 | NUR ---
DR SANDHU ADVISED OF 94/79 BP, PT W/O PAIN OR DISCOMFORT. INST TO HOLD NITRO OINT AT THIS TIME. REMOVED NITRO FROM CHEST, WIPED WITH WARM WATER AND DRIED. PT AWAKE ALERT SKIN W/D RESP NONLAB. NAD NOTED.
[2019-06-18] MEDS ORDERED: ATORVASTATIN CA20 MG PO (06:45)
[2019-06-18] MEDS ORDERED: ISOSORBIDE MON120 MG PO (06:45)
[2019-06-18] MEDS ORDERED: GLIPIZIDE5 MG PO (06:45)
[2019-06-18] MEDS ORDERED: CLOPIDOGREL75 MG PO (06:45)
[2019-06-18] MEDS ORDERED: CARVEDILOL25 MG PO (06:45)
[2019-06-18] MEDS ORDERED: NITROGLYCERIN0.4 MG SL (06:45)
--- NOTE | 2019-06-18 06:55 | NUR ---
REPORT TO MARIIA VALDEZ
--- NOTE | 2019-06-18 06:55 | NUR ---
rec'd report from pily bailey rn for continuity of care
[2019-06-18] MEDS: NITROGLYCERIN 2% OINT 1 GM PKT TOP SCH ×2 (07:00→12:27)
[2019-06-18] MEDS: INSULIN REGULAR, HUMAN 100 UNIT/1 ML 3ML VIAL SQ SCH ×4 (07:30→21:00)
--- NOTE | 2019-06-18 07:40 | NUR ---
CARDIAC MARKERS DRAWN AND SENT OFF TO THE [facility] Addendum: 06/18/19 at 0741 by ALMA TO THE LAB
[2019-06-18 08:05] LABS: CREATINE KINASE MB 3.3 ng/mL (0-5.0)
[2019-06-18] MEDS: CLOPIDOGREL BISULFATE 75 MG TAB PO SCH (09:30)
[2019-06-18] MEDS: ASPIRIN 81 MG ENTERIC COATED PO SCH (09:30)
[2019-06-18] MEDS ORDERED: METOPROLOL TARTRATE INJ 1 MG/ML VIAL IV PRN (10:45)
[2019-06-18] MEDS ORDERED: LORAZEPAM INJ 2 MG/ML VIAL IV PRN (11:00)
[2019-06-18 16:27] VITALS: BP 160/94
[2019-06-18] MEDS ORDERED: PNEUMOCOCCAL VACCINE POLYVALENT 23 MCG/0.5 ML VIAL IM SCH (16:28)
[2019-06-18 16:38] VITALS: BP 160/94
[2019-06-18 16:59] VITALS: BP 160/94
[2019-06-18] MEDS ORDERED: GLIPIZIDE 5 MG TAB PO SCH (17:00)
[2019-06-18 17:50] LABS: CREATINE KINASE MB 2.1 ng/mL (0-5.0)
--- NOTE | 2019-06-18 19:18 | NUR ---
Received change of shift report from AM nurse Hiren CHIANG. Walking rounds completed.
[2019-06-18 20:00] VITALS: BP 136/69
[2019-06-18] MEDS ORDERED: ATORVASTATIN 20 MG TAB PO SCH (21:00)
--- NOTE | 2019-06-18 22:49 | NUR ---
Cardiology Consult Dictation# [id number]
[2019-06-19] VITALS: BP 137/60
[2019-06-19 04:00] VITALS: BP 115/56
--- NOTE | 2019-06-19 04:42 | Consultation ---
DATE OF CONSULTATION: 06/18/2019 Cardiology Consultation REQUESTING PHYSICIAN: Benjamin Storey MD. REASON FOR CONSULTATION: Chest pain. HISTORY OF PRESENT ILLNESS: This is a 64-year-old man with history of coronary artery disease, status post LAD and recent circumflex PCI; chronic systolic heart failure; hypertension; hyperlipidemia; diabetes mellitus; and chronic kidney disease; who presents with complaints of chest pain. The patient was discharged from the hospital yesterday after presenting with chest pain. He was found to have urv-[id number]-[id number] myocardial infarction during the prior admission and underwent coronary angiogram with percutaneous coronary intervention of his left circumflex artery. His medications were adjusted and he was discharged home in stable condition. The patient reports that he felt well after discharge and ambulated to the grocery store and back without symptoms. However, yesterday evening, he developed shortness of breath and chest tightness while laying flat on the couch. He called his friend and was brought back to the ER for further evaluation. The patient reports that chest resolved after administration of a nitroglycerin patch. He did not attempt to take any of his own sublingual nitroglycerin at home. REVIEW OF SYSTEMS: Negative except as per HPI. PAST MEDICAL HISTORY: 1. Coronary artery disease with prior LAD PCI and recent circumflex PCI. 2. Chronic systolic heart failure. 3. Hyperlipemia. 4. Diabetes mellitus. 5. Chronic kidney disease. PAST SURGICAL HISTORY: Denies any. ALLERGIES: PLEASE SEE EMR. MEDICATIONS: Please see medication list. SOCIAL HISTORY: Denies tobacco, alcohol, or illicit drugs. FAMILY HISTORY: Pertinent for mother who of myocardial portion at age of 67. PHYSICAL EXAMINATION: VITAL SIGNS: Temperature 98.4 degrees, pulse 68, respiratory rate 18, blood pressure 133/93, and oxygen saturation 100% on room air. GENERAL: Well-developed, well-nourished man, in no acute distress. HEENT: Normocephalic, atraumatic. Pupils equal. No scleral icterus. NECK: Supple. No thyromegaly or cervical lymphadenopathy. No carotid bruits. LUNGS: Clear to auscultation bilaterally. No wheezes or crackles. CARDIOVASCULAR: Normal rate, regular rhythm. No murmur. Normal S1 and S2. ABDOMEN: Soft, nontender. EXTREMITIES: No edema. NEUROLOGIC: Nonfocal exam. LABORATORY DATA: EKG normal. Anterior infarct, age undetermined. Labs: Troponin 0.521. Sodium 142, potassium 3.9, chloride 107, CO2 of 26, BUN 19, and creatinine 1.3. WBC 11.74, hemoglobin 12.3, hematocrit 38.7, platelets 252. Chest x-ray, no acute thoracic radiographic abnormality. Left coronary stent. IMPRESSION: 1. Chest pain. 2. Elevated troponin. 3. Coronary artery disease, status post recent [id number] myocardial infarction with PCI of the circumflex and prior LAD PCI. 4. Hypertension. 5. Hyperlipidemia. 6. Chronic systolic heart failure. 7. Diabetes mellitus. RECOMMENDATIONS: The patient is status post percutaneous coronary intervention of the left circumflex artery earlier this week. Elevated troponin is not consistent with myocardial infarction, likely secondary to his recent [place]. Continue aspirin and Plavix. Continue the patient on carvedilol and losartan for optimal heart failure therapy. Continue isosorbide mononitrate for antianginal therapy. The patient's cardiac catheterization was reviewed. He has no significant lesions left to revascularize. Pain likely secondary to small vessel disease. We will titrate antianginal therapies if chest pain persists on ranolazine. Cardiac medications have been adjusted. No further cardiac evaluation is indicated at this time. Thank you for this consult. We will continue to follow. Samina Guillory MD ABS/MODL /[id number]
[2019-06-19 05:29] LABS: BASOPHILS % 0.3 % (0.0-1.0); EOSINOPHILS # (AUTO) 0.2 (0.0-0.4); EOSINOPHILS % 2.3 % (0.0-6.0); HEMATOCRIT 36.3 % (38.2-49.6); HEMOGLOBIN 11.3 g/dL (14.0-18.0); LYMPHOCYTES # (AUTO) 1.8 (1.0-3.2); LYMPHOCYTES % 17.5 % (18.0-39.1); MEAN CORPUSCULAR HEMOGLOBIN 29.1 pg (28-32); MEAN CORPUSCULAR HGB CONC 31.1 g/dL (31-35); MEAN CORPUSCULAR VOLUME 93.6 fL (81-99); MONOCYTES # (AUTO) 0.7 (0.2-0.8); MONOCYTES % 6.9 % (4.4-11.3); NEUTROPHILS # (AUTO) 7.5 (2.1-6.9); NEUTROPHILS % 72.6 % (38.7-80.0); PLATELET COUNT 206 x10e3/uL (140-360); RED BLOOD COUNT 3.88 x10e6/uL (4.3-5.7); RED CELL DISTRIBUTION WIDTH 15.2 % (11.7-14.4)
[2019-06-19 05:48] LABS: ALANINE AMINOTRANSFERASE 40 IU/L (0-55); ALBUMIN/GLOBULIN RATIO 0.9 (0.8-2.0); ALKALINE PHOSPHATASE 85 IU/L (40-150); ANION GAP 10.9 mmol/L (8-16); BLOOD UREA NITROGEN 17 mg/dL (7-26); BUN/CREATININE RATIO 18 (6-25); CALCIUM 9.2 mg/dL (8.4-10.2); CARBON DIOXIDE 27 mmol/L (22-29); CHLORIDE 108 mmol/L (98-107); CHOL/HDL RATIO 4.3 (3.9-4.7); CHOLESTEROL 102 MD/DL (0-199); CREATININE, SERUM 0.94 mg/dL (0.72-1.25); EST GLOMERULAR FILTRATION RATE > 60 ML/MIN (60-); GLUCOSE 119 mg/dL (74-118); HDL CHOLESTEROL 24 MG/DL (40-60); LDL CHOLESTEROL 58 MG/DL (60-130); POTASSIUM 3.9 mmol/L (3.5-5.1); SODIUM 142 mmol/L (136-145); TRIGLYCERIDES 102 MG/DL (0-149)
[2019-06-19 07:08] LABS: MAGNESIUM 2.2 MG/DL (1.3-2.1)
[2019-06-19 07:29] LABS: FREE T4 (FREE THYROXINE) 0.93 ng/dL (0.8-1.8); THYROID STIMULATING HORMONE 4.181 uIU/mL (0.350-4.940)
[2019-06-19] MEDS: INSULIN REGULAR, HUMAN 100 UNIT/1 ML 3ML VIAL SQ SCH (07:30)
[2019-06-19] MEDS ORDERED: GLIPIZIDE 5 MG TAB PO SCH (08:00)
[2019-06-19 08:06] VITALS: BP 166/83
[2019-06-19] MEDS ORDERED: ISOSORBIDE MONONITRATE 30 MG TAB CR PO SCH (09:00)
[2019-06-19] MEDS ORDERED: CARVEDILOL 12.5 MG TAB PO SCH (09:00)
[2019-06-19] MEDS ORDERED: OLMESARTAN 20 MG TAB PO SCH (09:00)
[2019-06-19] MEDS ORDERED: LORAZEPAM0.5 MG PO (09:19)
[2019-06-19] MEDS: ASPIRIN 81 MG ENTERIC COATED PO SCH (10:31)
[2019-06-19] MEDS: CLOPIDOGREL BISULFATE 75 MG TAB PO SCH (10:33)
[2019-06-19 10:42] VITALS: BP 166/83
--- NOTE | 2019-06-20 05:27 | Discharge Summary ---
ADMISSION DIAGNOSES: Chest pain, history of hypertension, hyperlipidemia, type 2 diabetes, and obesity. DISCHARGE DIAGNOSES: Chest pain, history of hypertension, hyperlipidemia, type 2 diabetes, obesity, rule out [place], and anxiety. HISTORY: The patient has a history of CAD with stents, hypertension, hyperlipidemia, and anxiety. SURGICAL HISTORY: Coronary stents x4. FAMILY HISTORY: The patient's dad, uncles, and aunts have diabetes. The patient's grandpa has cancer. SOCIAL HISTORY: Noncontributory. HOSPITAL COURSE: A 64-year-old male discharged yesterday after having an LCA stent placed on 06/16/2019. He went home and was feeling fine. He decided to get exercise, so he walked to [facility] with his walker, which was about 3/4 of a mile. He began having chest pain hours later. He complains of substernal chest pressure that began while lying in bed. He had associated shortness of breath and nausea. The pain did not radiate and he denies dizziness and diaphoresis. On admission, troponins were 0.516 and 0.541. Chest x-ray was negative. Aspirin and Plavix were restarted. Cardiology was consulted, who placed the stent just two days earlier. EKG showed normal sinus rhythm. Echo done on 06/16/2019, showed an EF of 35% to 40%. Cardiology saw the patient and said that the elevated troponin is not consistent with an [place], likely secondary to his recent [place]. The patient will discharge home with same prescriptions plus a prescription for lorazepam p.r.n. The patient says that he had palpitations, but his tele remained sinus rhythm throughout hospitalization. He seems very anxious and does not like to listen to the doctors. His primary care doctor was notified of the events. Vital signs stable, the patient afebrile. He will follow up with primary care in 1 to 2 weeks and Cardiology as discussed. The patient understands discharge instructions and agrees to plan. Dictated by Jennifer Ramirez NP MD CHRISTIE Isabel/JOCE /[id number]
== END 2019-06-19 11:40 | disposition home or self-care (01) ==
LOC: ER 23:48 → ERHOLD 06-18 01:50 → IMCU 06-18 15:58
PROVIDERS: ADMIT Internal Medicine; ATTEND Internal Medicine
DX: I25.110 Atherosclerotic heart disease of native coronary artery with unstable angina pectoris (principal); Z95.5 Presence of coronary angioplasty implant and graft; I10 Essential (primary) hypertension; E78.5 Hyperlipidemia, unspecified; F41.9 Anxiety disorder, unspecified; I25.2 Old myocardial infarction; E66.9 Obesity, unspecified; Z68.37 Body mass index [BMI] 37.0-37.9, adult
CPT/HCPCS: 36415 ×2; 71045; 80053 ×2; 80061; 82550; 82553; 82948 ×2; 83036; 83735; 83880 ×2; 84439; 84443; 84484; 85025 ×2; 85610; 85730; 90732; 93005; 96365 ×2; 96366; 99284; G0378 ×2; G0009

== ENCOUNTER 2020-08-27 15:42 | Emergency (ER) | payer MEDICARE, OTHER ==
[~2020-08-27] VITALS: Ht 177.8 cm; Wt 126.1 kg
[~2020-08-27 15:42] MED LIST changes: +ASPIRIN ENTERI325 MG PO; +CARVEDILOL25 MG PO; +CLOPIDOGREL75 MG PO; +FUROSEMIDE40 MG PO; +GLIPIZIDE5 MG PO; +ISOSORBIDE MON120 MG PO; +LEVOTHYROXINE25 MCG PO; +LORAZEPAM0.5 MG PO; +NITROGLYCERIN0.4 MG SL
--- OUTSIDE RECORDS SUMMARY | 2020-08-27 16:24 | XMS REPORT | Continuity of Care Document ---
Author Author [facility] t Organization [facility] Address [address] [place] [address] Phone Unavailable Care Team Providers Care Manager Math Name Role Phone Shayy GOLDSTEIN DO PCP Armani CERRATO Attphys Unavailable SEPIDEH BOSTON Attphys Unavailable Haresh SANDHU Attphys Unavailable SEPIDEH BOSTON Admphys Unavailable Payers Payer Name Policy Type Policy Number Effective Date Expiration Date [facility] [employer] [id number] 2018 00:00 :00 [facility] Problems Condition Name Condition Details Condition Category Status Onset Date Resolution Date Last Treatment Date Treating Clinician Comments Source Bronchitis Bronchitis Problem Active 2014-10-18 00:00:00 [facility] Hypotension due to drugs Hypotension due to drugs Problem Acti ve 2014-10-18 00:00:00 [facility] Chest pain Chest pain Problem Active C [facility] Dyspnea Dyspnea Problem Active [facility] Hypertension Hypertension Problem Active [facility] Elevated troponin I level Elevated troponin I level Problem Active [facility] Allergies, Adverse Reactions, Alerts Allergy Name Allergy Type Status Severity Reaction(s) Onset Date Inacti ve Date Treating Clinician Comments Source Metronidazole HCl Allergy to Substance Active 2019-10-27 00 :00:00 [facility] Angiotensin-converting enzyme inhibitor Allergy to Substance Active Severe ANGIOEDEMA 2019-10-27 00:00:00 [facility] Penicillin Allergy to Substance Active Severe 2019-10-27 00:00:00 [facility] Sulfa (Sulfonamide Antibiotics) Allergy to Substance Active Sever e BURNING 2019-10-27 00:00:00 [facility] Morphine Allergy to Substance Active Severe HEART STOPPED 2019-10-27 0 0:00:00 [facility] Metronidazole Allergy to Substance Active 2019-10-27 00:00: 00 [facility] Medications Ordered Medication Name Filled Medication Name Start Date Stop Da te Current Medication? Ordering Clinician Indication Dosage Frequency Signature (SIG) Comments Components Source Aspirin (Aspirin Enteric Coated) 325 Mg Tabec Aspirin (Aspirin Enteric Coated) 325 Mg Tabec 2019-10-30 00:00:00 Yes Jennifer Ramirez Np 325 Every Morning [facility] Levothyroxine Sodium 25 Mcg Tablet Levothyroxine Sodium 25 M cg Tablet 2019-10-30 00:00:00 Yes Jennifer Ramirez Np 25 Daily@06 [facility] Lorazepam 0.5 Mg Tablet, 0.5 Mg Oral Lorazepam 0.5 Mg Tablet , 0.5 Mg Oral 2019-06-19 00:00:00 2019-10-27 00:00:00 No Jennifer Ramirez Np .5 Every 8 Hours as needed for Anxiety [facility] Aspirin (Aspirin Chew) 81 Mg Chew, 81 Mg Oral Aspirin (Aspirin Chew) 81 Mg Chew, 81 Mg Oral 2014-10-21 00:00:00 2019-10-27 00:00:00 No Willie Erazo Np 81 Daily [facility] Carvedilol (Coreg) 3.125 Mg Tab, 3.125 Mg Oral Carvedi lol (Coreg) 3.125 Mg Tab, 3.125 Mg Oral 2014-10-21 00:00:00 2019-06-17 00:00:00 No Willie Erazo Np 3.125 Twice A Day [facility] Mucdm 1 Each Tabsr, 1 Each Oral Mucdm 1 Each Tabsr, 1 Each O ral 2014-10-21 00:00:00 2019-06-17 00:00:00 Peyton Erazo Np 1 Every 8 Hours [facility] Prednisone 20 Mg Tab, 40 Mg Oral Prednisone 20 Mg Tab, 40 Mg Oral 2014-10-21 00:00:00 2019-06-17 00:00:00 No Willie Erazo Melter Caster 40 Twice A Day [facility] Famotidine (Pepcid) 20 Mg Tablet, 20 Mg Oral Famotidin e (Pepcid) 20 Mg Tablet, 20 Mg Oral 2014-10-21 00:00:00 2018-04-13 00:00:00 No Willie Erazo Melter Caster 20 Twice A Day [facility] Atorvastatin Calcium 20 Mg Tablet Atorvastatin Calcium 20 Mg Tablet Yes 40 Daily [facility] Carvedilol 25 Mg Tablet Carvedilol 25 Mg Tablet Yes 25 Twice A Day [facility] Clopidogrel Bisulfate (Clopidogrel) 75 Mg Tablet Clopi dogrel Bisulfate (Clopidogrel) 75 Mg Tablet Yes 75 Daily [facility] Furosemide 40 Mg Tablet Furosemide 40 Mg Tablet Yes 40 Daily [facility] Glipizide 5 Mg Tablet Glipizide 5 Mg Tablet Yes 5 Twice A Day [facility] Isosorbide Mononitrate (Isosorbide Mononitrate Er) 120 Mg Tab.er.24h Isosorbide Mononitrate (Isosorbide Mononitrate Er) 120 Mg Tab.er.24h Yes 120 Daily [facility] Metformin Hcl 500 Mg Tablet Metformin Hcl 500 Mg Tablet Yes 500 Three Times A Day [facility] Nitroglycerin 0.4 Mg Tab.subl, 0.4 Mg Sublingual Nitro glycerin 0.4 Mg Tab.subl, 0.4 Mg Sublingual 2019-10-27 00:00:00 No .4 Every 5 Minutes as needed for Chest Pain [facility] Atorvastatin Calcium 20 Mg Tablet, 20 Mg Oral Atorvast atin Calcium 20 Mg Tablet, 20 Mg Oral 2019-06-17 00:00:00 No 20 Bedtime [facility] Pravastatin Sodium 40 Mg Tablet, 40 Mg Oral Pravastati n Sodium 40 Mg Tablet, 40 Mg Oral 2019-06-17 00:00:00 No 40 Daily [facility] Amiodarone Hcl (Pacerone) 200 Mg Tablet, 200 Mg Oral A miodarone Hcl (Pacerone) 200 Mg Tablet, 200 Mg Oral 2018-04-13 00:00:00 No 200 Daily [facility] Clopidogrel Bisulfate (Plavix) 75 Mg Tablet, 75 Mg Ora l Clopidogrel Bisulfate (Plavix) 75 Mg Tablet, 75 Mg Oral 2018-04-13 00:00:00 No 75 Daily [facility] Aspirin 325 Mg Tablet, 81 Mg Oral Aspirin 325 Mg Tablet, 81 Mg O ral 2014-10-21 00:00:00 No 81 Daily [facility] Carvedilol (Coreg) 12.5 Mg Tab, 25 Mg Oral Carvedilol (Coreg) 12.5 Mg Tab, 25 Mg Oral 2014-10-21 00:00:00 No 25 Twice A Day [facility] Hydralazine Hcl 25 Mg Tab, 50 Mg Oral Hydralazine Hcl 25 Mg Tab, 50 Mg Oral 2014-10-21 00:00:00 No 50 Three Times A Day [facility] Isosorbide Mononitrate (Imdur) 30 Mg Tabcr, 60 Mg Oral Isosorbide Mononitrate (Imdur) 30 Mg Tabcr, 60 Mg Oral 2014-10-21 00:00:00 No 60 Daily [facility] Olmesartan Medoxomil (Benicar) 20 Mg Tablet, 20 Mg Ora l Olmesartan Medoxomil (Benicar) 20 Mg Tablet, 20 Mg Oral 2014-10-21 00:00:00 No 2 0 Daily [facility] Rosuvastatin Calcium (Crestor) 10 Mg Tab, 10 Mg Oral R osuvastatin Calcium (Crestor) 10 Mg Tab, 10 Mg Oral 2013-05-18 00:00:00 No 10 Daily [facility] Simvastatin (Zocor) 20 Mg Tablet, 20 Mg Oral Simvastat in (Zocor) 20 Mg Tablet, 20 Mg Oral 2013-05-14 00:00:00 No 20 Bedtime [facility] Levofloxacin (Levaquin) 750 Mg Tablet, Oral Levoflox acin (Levaquin) 750 Mg Tablet, Oral 2013-05-03 00:00:00 No Daily [facility] Pravastatin Sodium (Pravachol) 40 Mg Tablet, Oral Pr avastatin Sodium (Pravachol) 40 Mg Tablet, Oral 2013-05-03 00:00:00 No Bedtime [facility] Valsartan (Diovan) 40 Mg Tablet, Oral Valsartan (Diovan) 4 0 Mg Tablet, Oral 2013-05-03 00:00:00 No Daily [facility] Procedures Procedure Date / Time Performed Performing Clinician Sour e DILATION OF 1 COR ART WITH DRUG-ELUT INTRA, PERC APPROACH 20 24-06-11 00:00:00 [facility] MEASURE OF CARDIAC SAMPL & PRESSURE, L HEART, PERC APPROACH 2019-06-16 00:00:00 [facility] FLUOROSCOPY OF MULT COR ART USING L OSM CONTRAST 2019-06-16 00:00:00 [facility] Encounters Start Date/Time End Date/Time En[facility] Type [facility] ID Source 2019-10-29 14:31:00 2019-10-30 13:33:00 Discharged Inpatient 1 AZAEL CERRATO [facility] [id number] [facility] 2019-06-18 01:50:00 2019-06-19 11:40:00 Discharged Inpatient (obs) 1 SEPIDEH BOSTON [facility] [id number] [facility] 2019-06-15 15:16:00 2019-06-17 11:20:00 Discharged Inpatient 1 SEPIDEH BOSTON [facility] [id number] [facility] 2018-04-13 23:55:00 2018-04-14 15:33:00 Discharged Inpatient (obs) 1 SANDHUDWAYNE MARKS [facility] [id number] [facility] Results Test Description Test Time Test Comments Results Result Comments Source Bedside Glucose 2019-10-30 07:52:00 Test Item Bedside Glucose (test code = 24458-6) 120 70-120 Meter ID: [id number] [facility] Thyroxine 2019-10-30 05:03:00* Test Item Value Reference Range Interpretation Comments Free Thyroxine (test code = 3024-7) 0.91 0.8-1.8 [facility] Smwvr0855-54-20 04:23:00* Test Item Value Reference Range Interpretation Comments Sodium Level (test code = 2951-2) 142 136-145 [facility]Potassium Cgvse2229-25-22 04:23:00* Test Item Value Reference Range Interpretation Comments Potassium Level (test code = 2823-3) 3.6 3.5-5.1 [facility] HospitalChloride Ljjct0055-86-17 04:23:00* Test Item Value Reference Range Interpretation Comments Chloride Level (test code = 2075-0) 106 98-107 [facility] HospitalCarbon Dioxide [id number] 04:23:00* Test Item Value Reference Range Interpretation Comments Carbon Dioxide Level (test code = 2028-9) 25 22-29 [facility] HospitalAnion Nku2295-33-97 04:23:00* Test Item Value Reference Range Interpretation Comments Anion Gap (test code = 07672-5) 14.6 8-16 [facility]Blood Urea Rygsshim5349-95-09 04:23:00* Test Item Value Reference Range Interpretation Comments Blood Urea Nitrogen (test code = 3094-0) 18 7-26 [facility] HospitalCreatinine2020-01-25 04:23:00* Test Item Value Reference Range Interpretation Comments Creatinine (test code = 2160-0) 1.13 0.72-1.25 [facility] HospitalBUN/Creatinine Xtfid6627-28-24 04:23:00* Test Item Value Reference Range Interpretation Comments BUN/Creatinine Ratio (test code = 3097-3) 16 6-25 [facility] HospitalEstimat Glomerular Filtration Rate 2019-10-30 04:23:00* Test Item Value Reference Range Interpretation Comments Estimat Glomerular Filtration Rate (test code = 982384848) > 60 >60 Ranges were taken from the National Kidney Disease Education Program and the [facility] literature.Reference ranges:60 or greater: Arfgxq29-42 ( for 3 consecutive months): Chronic kidney disease 15 or less: Kidney failureFormerly [facility] HospitalGlucose Xumvc5202-84-58 04:23:00* Test Item Value Reference Range Interpretation Comments Glucose Level (test code = PTH5338) 109 74-118 [facility] HospitalCalcium Vupmt8626-16-77 04:23:00* Test Item Value Reference Range Interpretation Comments Calcium Level (test code = 26186-1) 8.5 8.4-10.2 [facility] HospitalWhite Blood Bcrre1667-94-05 04:16:00* Test Item Value Reference Range Interpretation Comments White Blood Count (test code = 6690-2) 10.63 4.8-10.8 [facility] HospitalRed Blood Yjsxd2721-11-20 04:16:00* Test Item Value Reference Range Interpretation Comments Red Blood Count (test code = 789-8) 4.00 4.3-5.7 L [facility] HospitalHemoglobin2020-01-25 04:16:00* Test Item Value Reference Range Interpretation Comments Hemoglobin (test code = 74987-5) 12.0 14.0-18.0 L [facility] HospitalHematocrit2020-01-25 04:16:00* Test Item Value Reference Range Interpretation Comments Hematocrit (test code = 4544-3) 36.5 38.2-49.6 L [facility] HospitalMean Corpuscular Tgiyed1013-66-72 04:16:00* Test Item Value Reference Range Interpretation Comments Mean Corpuscular Volume (test code = 787-2) 91.3 81-99 [facility] HospitalMean Corpuscular Cuqgbwmwzn1882-27-10 04:16:00* Test Item Value Reference Range Interpretation Comments Mean Corpuscular Hemoglobin (test code = 785-6) 30.0 28-32 [facility] HospitalMean Corpuscular Hemoglobin Concent 2019-10-30 04:16:00* Test Item Value Reference Range Interpretation Comments Mean Corpuscular Hemoglobin Concent (test code = 786-4) 32.9 31-35 [facility] HospitalRed Cell Distribution Qqqvz8714-99-26 04:16:00* Test Item Value Reference Range Interpretation Comments Red Cell Distribution Width (test code = 24585-6) 14.8 11.7 -14.4 H [facility] HospitalPlatelet Zwhjr4024-93-17 04:16:00* Test Item Value Reference Range Interpretation Comments Platelet Count (test code = 777-3) 196 140-360 [facility] HospitalNeutrophils (%) (Auto)2019-10-30 04:16:00 * Test Item Value Reference Range Interpretation Comments Neutrophils (%) (Auto) (test code = 46986-4) 73.6 38.7-80.0 [facility] HospitalLymphocytes (%) (Auto)2019-10-30 04:16:00 * Test Item Value Reference Range Interpretation Comments Lymphocytes (%) (Auto) (test code = 736-9) 16.4 18.0-39.1 L [facility] HospitalMonocytes (%) (Auto)2019-10-30 04:16:00* Test Item Value Reference Range Interpretation Comments Monocytes (%) (Auto) (test code = 5905-5) 7.3 4.4-11.3 [facility] HospitalEosinophils (%) (Auto)2019-10-30 04:16:00 * Test Item Value Reference Range Interpretation Comments Eosinophils (%) (Auto) (test code = 713-8) 1.6 0.0-6.0 [facility] HospitalBasophils (%) (Auto)2019-10-30 04:16:00* Test Item Value Reference Range Interpretation Comments Basophils (%) (Auto) (test code = 706-2) 0.5 0.0-1.0 [facility] HospitalIM GRANULOCYTES %2019-10-30 04:16:00* Test Item Value Reference Range Interpretation Comments IM GRANULOCYTES % (test code = IM GRANULOCYTES %) 0.6 0.0- 1.0 [facility] HospitalNeutrophils # (Auto)2019-10-30 04:16:00* Test Item Value Reference Range Interpretation Comments Neutrophils # (Auto) (test code = 751-8) 7.8 2.1-6.9 H [facility] HospitalLymphocytes # (Auto)2019-10-30 04:16:00* Test Item Value Reference Range Interpretation Comments Lymphocytes # (Auto) (test code = 38507-2) 1.7 1.0-3.2 [facility] HospitalMonocytes # (Auto)2019-10-30 04:16:00* Test Item Value Reference Range Interpretation Comments Monocytes # (Auto) (test code = 742-7) 0.8 0.2-0.8 [facility] HospitalEosinophils # (Auto)2019-10-30 04:16:00* Test Item Value Reference Range Interpretation Comments Eosinophils # (Auto) (test code = 711-2) 0.2 0.0-0.4 [facility] HospitalBasophils # (Auto)2019-10-30 04:16:00* Test Item Value Reference Range Interpretation Comments Basophils # (Auto) (test code = 704-7) 0.1 0.0-0.1 [facility] HospitalAbsolute Immature Granulocyte (auto 2019-10-30 04:16:00* Test Item Value Reference Range Interpretation Comments Absolute Immature Granulocyte (auto (isabel t code = Absolute Immature Granulocyte (auto) 0.06 0-0.1 [facility] HospitalThyroid Stimulating Hormone (TSH) 2019-10-28 18:32:00* Test Item Value Reference Range Interpretation Comments Thyroid Stimulating Hormone (TSH) (test code = 23504-9) 6.420 0.350-4.940 H [facility] HospitalCreatine Aoowbm9382-96-07 15:04:00* Test Item Value Reference Range Interpretation Comments Creatine Kinase (test code = 2157-6) 47 30-200 [facility] HospitalCreatine Kinase SQ8633-73-54 15:04:00* Test Item Value Reference Range Interpretation Comments Creatine Kinase MB (test code = 50809-2) 1.80 0-5.0 [facility] HospitalTroponin P9246-08-08 15:04:00* Test Item Value Reference Range Interpretation Comments Troponin I (test code = LNI4131) 0.107 0-0.300 [facility] HospitalHemoglobin A1c Advlnep1673-22-48 06:01:00 * Test Item Value Reference Range Interpretation Comments Hemoglobin A1c Percent (test code = Hemoglobin A1c Percent) 6.5 4.0-7.0 [facility] HospitalTriglycerides Mstgr5074-48-58 05:56:00* Test Item Value Reference Range Interpretation Comments Triglycerides Level (test code = 2571-8) 133 0-149 [facility] HospitalCholesterol Ycvqr1370-35-46 05:56:00* Test Item Value Reference Range Interpretation Comments Cholesterol Level (test code = 2093-3) 138 0-199 Less than 200 mg/dL Low Gkln715 - 239 mg/dL Borderline Awdv880 m g/dl and greater High Risk [facility] HospitalLDL Kxbwiyhgdpe0458-16-34 05:56:00* Test Item Value Reference Range Interpretation Comments LDL Cholesterol (test code = 2089-1) 84 60-130 [facility] HospitalHDL Uieoljxoxah8678-53-07 05:56:00* Test Item Value Reference Range Interpretation Comments HDL Cholesterol (test code = 2085-9) 27 40-60 L [facility] HospitalCholesterol/HDL Kunyw9939-84-82 05:56:00 * Test Item Value Reference Range Interpretation Comments Cholesterol/HDL Ratio (test code = 9830-1) 5.1 3.9-4.7 H [facility] HospitalCHEST SINGLE (PORTABLE)2019-10-27 17:32:00 [facility] [address] [place] [address] Patient Name: ROBBIE DANIELS MR #: [id number] : 1955 Age/Sex: 64/M Req #: [id number] Adm Physician: Ordered by: KIERA VÁSQUEZ TAPPER SHANK Report #: [id number] Location: ER Room/Bed: Procedure: 0122-00 65 DX/CHEST SINGLE (PORTABLE) Exam Date: 10/27/19 Ex am Time: 1718 REPORT STATUS: Signed Chest, 1 view, 10/27/2019. History: Shortness of breath and chest pain. Comparison: 06/18/2019. Findings: The cardiomediastinal silhoue tte and pulmonary vasculature are within normal limits for a portable exam. Th ere is no focal consolidation or pleural effusion. There are no acute osseous or soft tissue abnormalities. Impression: No acute cardiopulmonary abno rmality. Signed by: Aron Parks on 10/27/2019 5:33 PM Dictated By: ARON PARKS MD 32 T ranscribed By: MAGDALENA on 10/27/191732 COPY TO: KIERA VÁSQUEZ NP B-Type Natriuretic Whbytri6506-55-70 17:24:00* Test Item Value Reference Range Interpretation Comments B-Type Natriuretic Peptide (test code = 20801-6) < 10.0 0-100 [facility] HospitalTotal Akslstvlo9220-04-29 17:01:00* Test Item Value Reference Range Interpretation Comments Total Bilirubin (test code = 1975-2) 0.5 0.2-1.2 [facility] HospitalAspartate Amino Transf (AST/SGOT) 2019-10-27 17:01:00* Test Item Value Reference Range Interpretation Comments Aspartate Amino Transf (AST/SGOT) (test code = Aspartate Amino Transf (AST/SGOT)) 15 5-34 [facility] HospitalAlanine Aminotransferase (ALT/SGPT) 2019-10-27 17:01:00* Test Item Value Reference Range Interpretation Comments Alanine Aminotransferase (ALT/SGPT) (test code = 1742-6) 19 0-55 [facility] HospitalTotal Doceygq8117-81-92 17:01:00* Test Item Value Reference Range Interpretation Comments Total Protein (test code = 2885-2) 7.5 6.5-8.1 [facility] HospitalAlbumin2020-01-22 17:01:00* Test Item Value Reference Range Interpretation Comments Albumin (test code = 1751-7) 3.9 3.5-5.0 [facility] HospitalGlobulin2020-01-22 17:01:00* Test Item Value Reference Range Interpretation Comments Globulin (test code = 35871-5) 3.6 2.3-3.5 H [facility] HospitalAlbumin/Globulin Jidrj7029-00-55 17:01:00 * Test Item Value Reference Range Interpretation Comments Albumin/Globulin Ratio (test code = 1759-0) 1.1 0.8-2.0 [facility] HospitalAlkaline Znvrtgytxmm9034-92-10 17:01:00* Test Item Value Reference Range Interpretation Comments Alkaline Phosphatase (test code = 6768-6) 101 40-150 [facility] HospitalUrine SAQ1055-62-12 16:57:00* Test Item Value Reference Range Interpretation Comments Urine WBC (test code = 5821-4) NONE 0-5 [facility] HospitalUrine FAB5990-03-95 16:57:00* Test Item Value Reference Range Interpretation Comments Urine RBC (test code = 30211-6) NONE 0-5 [facility] HospitalUrine Pnlisjru5544-56-79 16:57:00* Test Item Value Reference Range Interpretation Comments Urine Bacteria (test code = 84989-8) NONE NONE [facility] HospitalUrine Epithelial Ojawo8455-92-10 16:57:00 * Test Item Value Reference Range Interpretation Comments Urine Epithelial Cells (test code = 13209-2) NONE NONE [facility] HospitalUrine Hyaline Lpdom7037-74-46 16:57:00* Test Item Value Reference Range Interpretation Comments Urine Hyaline Casts (test code = 69619-8) 2-5 0-1 H [facility] HospitalProthrombin Pypz0007-50-88 16:52:00* Test Item Value Reference Range Interpretation Comments Prothrombin Time (test code = 5902-2) 12.5 11.9-14.5 [facility] HospitalProthromb Time International Ratio 2019-10-27 16:52:00* Test Item Value Reference Range Interpretation Comments Prothromb Time International Ratio (test code = 6301-6) 0.89 Oral Anticoagulant Therapy INR Values:1. Low Intensity Therapy 1.5 - 2.02 . Moderate Intensity Therapy 2.0 - 3.03. High Intensity Therapy(1) 2.5 - 3. 54. High Intensity Therapy(2) 3.0 - 4.05. Panic Value INR > 5.0 [facility] HospitalActivated Partial Thromboplast Time 2019-10-27 16:52:00* Test Item Value Reference Range Interpretation Comments Activated Partial Thromboplast Time (test code = 32310-6) 31.1 23.8-35.5 [facility] HospitalUrine Thwzy2783-77-53 16:45:00* Test Item Value Reference Range Interpretation Comments Urine Color (test code = 5778-6) YELLOW YELLOW [facility] HospitalUrine Iudvqbh8972-40-00 16:45:00* Test Item Value Reference Range Interpretation Comments Urine Clarity (test code = 93443-9) CLEAR CLEAR [facility] HospitalUrine Specific Qwcjfdw0574-43-94 16:45:00 * Test Item Value Reference Range Interpretation Comments Urine Specific [place] (test code = 5811-5) 1.020 1.010-1.02 5 [facility] HospitalUrine yT1963-19-22 16:45:00* Test Item Value Reference Range Interpretation Comments Urine pH (test code = 74688-9) 5.5 5-7 [facility] HospitalUrine Leukocyte Fvcfeaqq8346-08-66 16:45:00* Test Item Value Reference Range Interpretation Comments Urine Leukocyte Esterase (test code = 5799-2) NEGATIVE NEGATIVE [facility] HospitalUrine Erzkfju3811-10-37 16:45:00* Test Item Value Reference Range Interpretation Comments Urine Nitrite (test code = 37036-8) NEGATIVE NEGATIVE [facility] HospitalUrine Nsdmbuh5714-62-59 16:45:00* Test Item Value Reference Range Interpretation Comments Urine Protein (test code = 5804-0) NEGATIVE NEGATIVE [facility] HospitalUrine Glucose (UA)2019-10-27 16:45:00* Test Item Value Reference Range Interpretation Comments Urine Glucose (UA) (test code = 2349-9) NEGATIVE NEGATIVE [facility] HospitalUrine Cfbhklx1090-84-90 16:45:00* Test Item Value Reference Range Interpretation Comments Urine Ketones (test code = 04251-4) NEGATIVE NEGATIVE [facility] HospitalUrine Tfleriwopmhe1543-90-45 16:45:00* Test Item Value Reference Range Interpretation Comments Urine Urobilinogen (test code = 53202-5) 0.2 0.2-1 [facility] HospitalUrine Rdfrynxui4754-37-07 16:45:00* Test Item Value Reference Range Interpretation Comments Urine Bilirubin (test code = 1978-6) NEGATIVE NEGATIVE [facility] HospitalUrine Jfvgl6974-17-36 16:45:00* Test Item Value Reference Range Interpretation Comments Urine Blood (test code = 36625-8) NEGATIVE NEGATIVE [facility] HospitalFree Edmbubjzd1748-35-71 07:37:00* Test Item Value Reference Range Interpretation Comments Free Thyroxine (test code = 3024-7) 0.93 0.8-1.8 [facility] [facility] HospitalThy[facility]ulating Hormone (TSH) 2019-06-19 07:37:00* Test Item Value Reference Range Interpretation Comments Thyroid Stimulating Hormone (TSH) (test code = 84935-4) 4.181 0.350-4.940 [facility] HospitalB-Type Natriuretic Texvgbt7906-89-27 07:23:00* Test Item Value Reference Range Interpretation Comments B-Type Natriuretic Peptide (test code = 18648-0) 38.8 0-100 [facility] HospitalMagnesium Kjnkw2608-18-92 07:09:00* Test Item Value Reference Range Interpretation Comments Magnesium Level (test code = 01478-4) 2.2 1.3-2.1 H [facility] HospitalMagnesium Xamig6738-12-59 07:09:00* Test Item Value Reference Range Interpretation Comments Magnesium Level (test code = 46357-4) 2.2 1.3-2.1 H [facility] HospitalHemoglobin A1c Ipjrhit2984-78-39 07:06:00 * Test Item Value Reference Range Interpretation Comments Hemoglobin A1c Percent (test code = Hemoglobin A1c Percent) 6.9 4.0-7.0 [facility] Noymq7804-10-40 05:51:00* Test Item Value Reference Range Interpretation Comments Sodium Level (test code = 2951-2) 142 136-145 [facility] HospitalPotassium Yhuli6879-83-65 05:51:00* Test Item Value Reference Range Interpretation Comments Potassium Level (test code = 2823-3) 3.9 3.5-5.1 [facility] HospitalChloride Ymsxj1725-81-33 05:51:00* Test Item Value Reference Range Interpretation Comments Chloride Level (test code = 2075-0) 108 98-107 H [facility] HospitalCarbon Dioxide Xjnzj1890-53-85 05:51:00* Test Item Value Reference Range Interpretation Comments Carbon Dioxide Level (test code = 2028-9) 27 22-29 [facility] HospitalAnion Hqx9516-16-71 05:51:00* Test Item Value Reference Range Interpretation Comments Anion Gap (test code = 54159-5) 10.9 8-16 [facility] HospitalBlood Urea Pkjoaczk9387-26-91 05:51:00* Test Item Value Reference Range Interpretation Comments Blood Urea Nitrogen (test code = 3094-0) 17 7-26 [facility] HospitalCreatinine2019-09-14 05:51:00* Test Item Value Reference Range Interpretation Comments Creatinine (test code = 2160-0) 0.94 0.72-1.25 [facility] HospitalBUN/Creatinine Bljue7002-55-68 05:51:00* Test Item Value Reference Range Interpretation Comments BUN/Creatinine Ratio (test code = 3097-3) 18 6-25 [facility] HospitalEstimat Glomerular Filtration Rate 2019-06-19 05:51:00* Test Item Value Reference Range Interpretation Comments Estimat Glomerular Filtration Rate (test code = 894737073) > 60 >60 Ranges were taken from the National Kidney Disease Education Program and the [facility] literature.Reference ranges:60 or greater: Lwhiqw34-94 ( for 3 consecutive months): Chronic kidney disease 15 or less: Kidney failureFormerly [facility] HospitalGlucose Uixhq2706-25-72 05:51:00* Test Item Value Reference Range Interpretation Comments Glucose Level (test code = VZP1451) 119 74-118 H [facility] HospitalCalcium Wfbeq3210-29-60 05:51:00* Test Item Value Reference Range Interpretation Comments Calcium Level (test code = 80211-2) 9.2 8.4-10.2 [facility] HospitalTotal Ficfpeckg1576-02-08 05:51:00* Test Item Value Reference Range Interpretation Comments Total Bilirubin (test code = 1975-2) 0.3 0.2-1.2 [facility] HospitalAspartate Amino Transf (AST/SGOT) 2019-06-19 05:51:00* Test Item Value Reference Range Interpretation Comments Aspartate Amino Transf (AST/SGOT) (test code = Aspartate Amino Transf (AST/SGOT)) 34 5-34 [facility] HospitalAlanine Aminotransferase (ALT/SGPT) 2019-06-19 05:51:00* Test Item Value Reference Range Interpretation Comments Alanine Aminotransferase (ALT/SGPT) (test code = 1742-6) 40 0-55 [facility] HospitalTotal Hdzoqrr1378-77-91 05:51:00* Test Item Value Reference Range Interpretation Comments Total Protein (test code = 2885-2) 6.2 6.5-8.1 L [facility] HospitalAlbumin2019-09-14 05:51:00* Test Item Value Reference Range Interpretation Comments Albumin (test code = 1751-7) 3.0 3.5-5.0 L [facility] HospitalGlobulin2019-09-14 05:51:00* Test Item Value Reference Range Interpretation Comments Globulin (test code = 07959-5) 3.2 2.3-3.5 [facility] HospitalAlbumin/Globulin Qhjmi6978-10-49 05:51:00 * Test Item Value Reference Range Interpretation Comments Albumin/Globulin Ratio (test code = 1759-0) 0.9 0.8-2.0 [facility] HospitalAlkaline Gogwsjjqhkr2273-82-69 05:51:00* Test Item Value Reference Range Interpretation Comments Alkaline Phosphatase (test code = 6768-6) 85 40-150 [facility] HospitalTriglycerides Dftxf1255-96-55 05:51:00* Test Item Value Reference Range Interpretation Comments Triglycerides Level (test code = 2571-8) 102 0-149 [facility] HospitalCholesterol Yvsxz7432-44-99 05:51:00* Test Item Value Reference Range Interpretation Comments Cholesterol Level (test code = 2093-3) 102 0-199 Less than 200 mg/dL Low Gprm427 - 239 mg/dL Borderline Flmh881 m g/dl and greater High Risk [facility] HospitalLDL Cnjxfkutikl6364-39-21 05:51:00* Test Item Value Reference Range Interpretation Comments LDL Cholesterol (test code = 2089-1) 58 60-130 L [facility] HospitalHDL Mopdwbvgqls3949-46-37 05:51:00* Test Item Value Reference Range Interpretation Comments HDL Cholesterol (test code = 2085-9) 24 40-60 L [facility] HospitalCholesterol/HDL Hiqww3680-70-44 05:51:00 * Test Item Value Reference Range Interpretation Comments Cholesterol/HDL Ratio (test code = 9830-1) 4.3 3.9-4.7 [facility] HospitalWhite Blood Ewule9596-20-33 05:45:00* Test Item Value Reference Range Interpretation Comments White Blood Count (test code = 6690-2) 10.29 4.8-10.8 [facility] HospitalRed Blood Kwcwc2605-10-46 05:45:00* Test Item Value Reference Range Interpretation Comments Red Blood Count (test code = 789-8) 3.88 4.3-5.7 L [facility] HospitalHemoglobin2019-09-14 05:45:00* Test Item Value Reference Range Interpretation Comments Hemoglobin (test code = 62268-4) 11.3 14.0-18.0 L [facility] HospitalHematocrit2019-09-14 05:45:00* Test Item Value Reference Range Interpretation Comments Hematocrit (test code = 4544-3) 36.3 38.2-49.6 L [facility] HospitalMean Corpuscular Ksowrk8022-75-28 05:45:00* Test Item Value Reference Range Interpretation Comments Mean Corpuscular Volume (test code = 787-2) 93.6 81-99 [facility] HospitalMean Corpuscular Rnnfndozzi1705-19-92 05:45:00* Test Item Value Reference Range Interpretation Comments Mean Corpuscular Hemoglobin (test code = 785-6) 29.1 28-32 [facility] HospitalMean Corpuscular Hemoglobin Concent 2019-06-19 05:45:00* Test Item Value Reference Range Interpretation Comments Mean Corpuscular Hemoglobin Concent (test code = 786-4) 31.1 31-35 [facility] HospitalRed Cell Distribution Ysgxt2380-89-99 05:45:00* Test Item Value Reference Range Interpretation Comments Red Cell Distribution Width (test code = 55138-3) 15.2 11.7 -14.4 H [facility] HospitalPlatelet Kaczb3147-79-47 05:45:00* Test Item Value Reference Range Interpretation Comments Platelet Count (test code = 777-3) 206 140-360 [facility] HospitalNeutrophils (%) (Auto)2019-06-19 05:45:00 * Test Item Value Reference Range Interpretation Comments Neutrophils (%) (Auto) (test code = 25682-6) 72.6 38.7-80.0 [facility] HospitalLymphocytes (%) (Auto)2019-06-19 05:45:00 * Test Item Value Reference Range Interpretation Comments Lymphocytes (%) (Auto) (test code = 736-9) 17.5 18.0-39.1 L [facility] HospitalMonocytes (%) (Auto)2019-06-19 05:45:00* Test Item Value Reference Range Interpretation Comments Monocytes (%) (Auto) (test code = 5905-5) 6.9 4.4-11.3 [facility] HospitalEosinophils (%) (Auto)2019-06-19 05:45:00 * Test Item Value Reference Range Interpretation Comments Eosinophils (%) (Auto) (test code = 713-8) 2.3 0.0-6.0 [facility] HospitalBasophils (%) (Auto)2019-06-19 05:45:00* Test Item Value Reference Range Interpretation Comments Basophils (%) (Auto) (test code = 706-2) 0.3 0.0-1.0 [facility] HospitalIM GRANULOCYTES %2019-06-19 05:45:00* Test Item Value Reference Range Interpretation Comments IM GRANULOCYTES % (test code = IM GRANULOCYTES %) 0.4 0.0- 1.0 [facility] HospitalNeutrophils # (Auto)2019-06-19 05:45:00* Test Item Value Reference Range Interpretation Comments Neutrophils # (Auto) (test code = 751-8) 7.5 2.1-6.9 H [facility] HospitalLymphocytes # (Auto)2019-06-19 05:45:00* Test Item Value Reference Range Interpretation Comments Lymphocytes # (Auto) (test code = 16573-6) 1.8 1.0-3.2 [facility] HospitalMonocytes # (Auto)2019-06-19 05:45:00* Test Item Value Reference Range Interpretation Comments Monocytes # (Auto) (test code = 742-7) 0.7 0.2-0.8 [facility] HospitalEosinophils # (Auto)2019-06-19 05:45:00* Test Item Value Reference Range Interpretation Comments Eosinophils # (Auto) (test code = 711-2) 0.2 0.0-0.4 [facility] HospitalBasophils # (Auto)2019-06-19 05:45:00* Test Item Value Reference Range Interpretation Comments Basophils # (Auto) (test code = 704-7) 0.0 0.0-0.1 [facility] HospitalAbsolute Immature Granulocyte (auto 2019-06-19 05:45:00* Test Item Value Reference Range Interpretation Comments Absolute Immature Granulocyte (auto (isabel t code = Absolute Immature Granulocyte (auto) 0.04 0-0.1 [facility] HospitalBedside Jwmalhw3489-05-35 21:52:00* Test Item Value Reference Range Interpretation Comments Bedside Glucose (test code = 56724-4) 110 70-120 Meter ID: [id number] [facility] HospitalCreatine Kinase MB 2019-06-18 17:52:00* Test Item Value Reference Range Interpretation Comments Creatine Kinase MB (test code = 63286-4) 2.10 0-5.0 [facility] HospitalTroponin W1345-63-84 17:52:00* Test Item Value Reference Range Interpretation Comments Troponin I (test code = LSM2897) 0.521 0-0.300 H [facility] HospitalCreatine Dxcwta4975-77-42 17:47:00* Test Item Value Reference Range Interpretation Comments Creatine Kinase (test code = 2157-6) 74 30-200 [facility] HospitalCHEST SINGLE (PORTABLE)2019-06-18 02:53:00 [place] [address] Patient Name: ROBBIE DANIELS MR #: [id number] : 1955 Age/Sex: 64/M Req #: [id number] Adm Physician: SEPIDEH BOSTON MD Ordered by: DWAYNE SANDHU MD Report #: [id number] Location: [facility] Room/Bed: [place] [address] Procedure: DX/CHEST SINGLE (PORTABLE) Exam Date: 06/18/19 Exam Time: 0115 REPORT STATUS: S igned EXAMINATION: CHEST SINGLE (PORTABLE) INDICATION: Short of suzanne ath COMPARISON: Chest radiograph 06/15/2019 FINDINGS: AP vi ew TUBES and LINES: None. LUNGS: Lungs are well inflated. Lungs are clear. There is no evidence of pneumonia or pulmonary edema. PLEURA: No pleural effusion or pneumothorax. HEART AND MEDIASTINUM: The cardiomed iastinal silhouette is unremarkable. Left coronary stent. BONES AND SOFT TISSUES: No acute osseous lesion. Soft tissues are unremarkable. UPPER ABDOMEN: No free air under the diaphragm. IMPRESSION: No acute th oracic radiographic abnormality. Left coronary stent. Signed by: Zari Duke DO on 06/18/2019 2:55 AM Dictated By: TASNEEM DUKE DO Elec tronically Signed By: TASNEEM DUKE DO on 06/18/19254 Transcribed By: YVROSE SINGH on 06/18/19254 COPY TO: DWAYNE SANDHU MD Prothrombin Jxnd9081-00-86 01:05:00* Test Item Value Reference Range Interpretation Comments Prothrombin Time (test code = 5902-2) 12.9 11.9-14.5 [facility] HospitalProthromb Time International Ratio 2019-06-18 01:05:00* Test Item Value Reference Range Interpretation Comments Prothromb Time International Ratio (test code = 6301-6) 0.92 Oral Anticoagulant Therapy INR Values:1. Low Intensity Therapy 1.5 - 2.02 . Moderate Intensity Therapy 2.0 - 3.03. High Intensity Therapy(1) 2.5 - 3. 54. High Intensity Therapy(2) 3.0 - 4.05. Panic Value INR > 5.0 [facility] HospitalActivated Partial Thromboplast Time 2019-06-18 01:05:00* Test Item Value Reference Range Interpretation Comments Activated Partial Thromboplast Time (test code = 49346-6) 25.9 23.8-35.5 [facility]odium Pffzb2013-26-75 06:49:00* Test Item Value Reference Range Interpretation Comments Sodium Level (test code = 2951-2) 140 136-145 [facility] HospitalPotassium Ijise7875-74-17 06:49:00* Test Item Value Reference Range Interpretation Comments Potassium Level (test code = 2823-3) 3.9 3.5-5.1 [facility] HospitalChloride Nxyut4275-03-43 06:49:00* Test Item Value Reference Range Interpretation Comments Chloride Level (test code = 2075-0) 106 98-107 [facility] HospitalCarbon Dioxide Uydck7826-73-60 06:49:00* Test Item Value Reference Range Interpretation Comments Carbon Dioxide Level (test code = 2028-9) 25 22-29 [facility] HospitalAnion Nvg9372-03-89 06:49:00* Test Item Value Reference Range Interpretation Comments Anion Gap (test code = 52107-5) 12.9 8-16 [facility] HospitalBlood Urea Dwnzllfe2039-98-54 06:49:00* Test Item Value Reference Range Interpretation Comments Blood Urea Nitrogen (test code = 3094-0) 19 7- [facility] HospitalCreatinine2019-09-12 06:49:00* Test Item Value Reference Range Interpretation Comments Creatinine (test code = 2160-0) 1.13 0.72-1.25 [facility] HospitalBUN/Creatinine Itejz8468-54-84 06:49:00* Test Item Value Reference Range Interpretation Comments BUN/Creatinine Ratio (test code = 3097-3) 17 6- [facility] HospitalEstimat Glomerular Filtration Rate 2019-06-17 06:49:00* Test Item Value Reference Range Interpretation Comments Estimat Glomerular Filtration Rate (test code = 076070780) > 60 >60 Ranges were taken from the National Kidney Disease Education Program and the [facility] literature.Reference ranges:60 or greater: Uzpuxa25-11 ( for 3 consecutive months): Chronic kidney disease 15 or less: Kidney failureFormerly [facility] HospitalGlucose Rdkyi4844-05-66 06:49:00* Test Item Value Reference Range Interpretation Comments Glucose Level (test code = NOV4712) 143 74-118 H [facility] HospitalCalcium Glnfd9639-15-12 06:49:00* Test Item Value Reference Range Interpretation Comments Calcium Level (test code = 04394-8) 9.3 8.4-10.2 [facility] HospitalWhite Blood Xzzqq5501-74-81 06:30:00* Test Item Value Reference Range Interpretation Comments White Blood Count (test code = 6690-2) 9.61 4.8-10.8 [facility] HospitalRed Blood Jcsst6992-34-44 06:30:00* Test Item Value Reference Range Interpretation Comments Red Blood Count (test code = 789-8) 4.10 4.3-5.7 L [facility] HospitalHemoglobin2019-09-12 06:30:00* Test Item Value Reference Range Interpretation Comments Hemoglobin (test code = 94226-8) 12.0 14.0-18.0 L [facility] HospitalHematocrit2019-09-12 06:30:00* Test Item Value Reference Range Interpretation Comments Hematocrit (test code = 4544-3) 38.8 38.2-49.6 [facility] HospitalMean Corpuscular Gbjquk4537-19-24 06:30:00* Test Item Value Reference Range Interpretation Comments Mean Corpuscular Volume (test code = 787-2) 94.6 81-99 [facility] HospitalMean Corpuscular Heavbxenqm1189-74-47 06:30:00* Test Item Value Reference Range Interpretation Comments Mean Corpuscular Hemoglobin (test code = 785-6) 29.3 28-32 [facility] HospitalMean Corpuscular Hemoglobin Concent 2019-06-17 06:30:00* Test Item Value Reference Range Interpretation Comments Mean Corpuscular Hemoglobin Concent (test code = 786-4) 30.9 31-35 L [facility] HospitalRed Cell Distribution Nbrsa1823-16-39 06:30:00* Test Item Value Reference Range Interpretation Comments Red Cell Distribution Width (test code = 40185-3) 15.3 11.7 -14.4 H [facility] HospitalPlatelet Dgrxd8114-37-31 06:30:00* Test Item Value Reference Range Interpretation Comments Platelet Count (test code = 777-3) 229 140-360 [facility] HospitalNeutrophils (%) (Auto)2019-06-17 06:30:00 * Test Item Value Reference Range Interpretation Comments Neutrophils (%) (Auto) (test code = 83012-5) 72.8 38.7-80.0 [facility] HospitalLymphocytes (%) (Auto)2019-06-17 06:30:00 * Test Item Value Reference Range Interpretation Comments Lymphocytes (%) (Auto) (test code = 736-9) 17.2 18.0-39.1 L [facility] HospitalMonocytes (%) (Auto)2019-06-17 06:30:00* Test Item Value Reference Range Interpretation Comments Monocytes (%) (Auto) (test code = 5905-5) 7.1 4.4-11.3 [facility] HospitalEosinophils (%) (Auto)2019-06-17 06:30:00 * Test Item Value Reference Range Interpretation Comments Eosinophils (%) (Auto) (test code = 713-8) 2.0 0.0-6.0 [facility] HospitalBasophils (%) (Auto)2019-06-17 06:30:00* Test Item Value Reference Range Interpretation Comments Basophils (%) (Auto) (test code = 706-2) 0.5 0.0-1.0 [facility] HospitalIM GRANULOCYTES %2019-06-17 06:30:00* Test Item Value Reference Range Interpretation Comments IM GRANULOCYTES % (test code = IM GRANULOCYTES %) 0.4 0.0- 1.0 [facility] HospitalNeutrophils # (Auto)2019-06-17 06:30:00* Test Item Value Reference Range Interpretation Comments Neutrophils # (Auto) (test code = 751-8) 7.0 2.1-6.9 H [facility] HospitalLymphocytes # (Auto)2019-06-17 06:30:00* Test Item Value Reference Range Interpretation Comments Lymphocytes # (Auto) (test code = 28088-9) 1.7 1.0-3.2 [facility] HospitalMonocytes # (Auto)2019-06-17 06:30:00* Test Item Value Reference Range Interpretation Comments Monocytes # (Auto) (test code = 742-7) 0.7 0.2-0.8 [facility] HospitalEosinophils # (Auto)2019-06-17 06:30:00* Test Item Value Reference Range Interpretation Comments Eosinophils # (Auto) (test code = 711-2) 0.2 0.0-0.4 [facility] HospitalBasophils # (Auto)2019-06-17 06:30:00* Test Item Value Reference Range Interpretation Comments Basophils # (Auto) (test code = 704-7) 0.1 0.0-0.1 [facility] HospitalAbsolute Immature Granulocyte (auto 2019-06-17 06:30:00* Test Item Value Reference Range Interpretation Comments Absolute Immature Granulocyte (auto (isabel t code = Absolute Immature Granulocyte (auto) 0.04 0-0.1 [facility] HospitalBedside Agcoqfb6790-43-79 00:51:00* Test Item Value Reference Range Interpretation Comments Bedside Glucose (test code = 11500-7) 206 70-120 H Meter ID: [id number] [facility] HospitalPhosphorus Level 2019-06-16 06:38:00* Test Item Value Reference Range Interpretation Comments Phosphorus Level (test code = GQV2852) 3.1 2.3-4.7 [facility] HospitalMagnesium Dutpi1878-28-20 06:38:00* Test Item Value Reference Range Interpretation Comments Magnesium Level (test code = 52169-3) 2.0 1.3-2.1 [facility] HospitalTotal Lkhbxtter3591-66-68 06:38:00* Test Item Value Reference Range Interpretation Comments Total Bilirubin (test code = 1975-2) 0.5 0.2-1.2 [facility] HospitalAspartate Amino Transf (AST/SGOT) 2019-06-16 06:38:00* Test Item Value Reference Range Interpretation Comments Aspartate Amino Transf (AST/SGOT) (test code = Aspartate Amino Transf (AST/SGOT)) 12 5-34 [facility] HospitalAlanine Aminotransferase (ALT/SGPT) 2019-06-16 06:38:00* Test Item Value Reference Range Interpretation Comments Alanine Aminotransferase (ALT/SGPT) (test code = 1742-6) 14 0-55 [facility] HospitalTotal Crdchga3372-27-92 06:38:00* Test Item Value Reference Range Interpretation Comments Total Protein (test code = 2885-2) 6.8 6.5-8.1 [facility] HospitalAlbumin2019-09-11 06:38:00* Test Item Value Reference Range Interpretation Comments Albumin (test code = 1751-7) 3.5 3.5-5.0 [facility] HospitalGlobulin2019-09-11 06:38:00* Test Item Value Reference Range Interpretation Comments Globulin (test code = 25419-7) 3.3 2.3-3.5 [facility] HospitalAlbumin/Globulin Qtqqx2038-23-30 06:38:00 * Test Item Value Reference Range Interpretation Comments Albumin/Globulin Ratio (test code = 1759-0) 1.1 0.8-2.0 [facility] HospitalAlkaline Huilqygwwwz4374-07-11 06:38:00* Test Item Value Reference Range Interpretation Comments Alkaline Phosphatase (test code = 6768-6) 92 40-150 [facility] HospitalTriglycerides Ocnnw3430-91-24 06:38:00* Test Item Value Reference Range Interpretation Comments Triglycerides Level (test code = 2571-8) 147 0-149 [facility] HospitalCholesterol Tdaps3873-91-14 06:38:00* Test Item Value Reference Range Interpretation Comments Cholesterol Level (test code = 2093-3) 125 0-199 Less than 200 mg/dL Low Cheu592 - 239 mg/dL Borderline Goqg573 m g/dl and greater High Risk [facility] HospitalLDL Npgbuubcazu2464-83-98 06:38:00* Test Item Value Reference Range Interpretation Comments LDL Cholesterol (test code = 2089-1) 72 60-130 [facility] HospitalHDL Nsnldyqdjar1062-26-39 06:38:00* Test Item Value Reference Range Interpretation Comments HDL Cholesterol (test code = 2085-9) 24 40-60 L [facility] HospitalCholesterol/HDL Ewnxk1965-38-67 06:38:00 * Test Item Value Reference Range Interpretation Comments Cholesterol/HDL Ratio (test code = 9830-1) 5.2 3.9-4.7 H [facility] HospitalPhosphorus Fanft2117-25-55 06:38:00* Test Item Value Reference Range Interpretation Comments Phosphorus Level (test code = PIL6811) 3.1 2.3-4.7 [facility] HospitalPhosphorus Iorre9449-51-89 06:38:00* Test Item Value Reference Range Interpretation Comments Phosphorus Level (test code = DPQ3687) 3.1 2.3-4.7 [facility] HospitalCreatine Jcztai9549-65-16 06:20:00* Test Item Value Reference Range Interpretation Comments Creatine Kinase (test code = 2157-6) 68 30-200 [facility] HospitalCreatine Kinase YK9619-69-62 06:03:00* Test Item Value Reference Range Interpretation Comments Creatine Kinase MB (test code = 65338-7) 2.30 0-5.0 [facility] HospitalTroponin T6056-58-82 06:03:00* Test Item Value Reference Range Interpretation Comments Troponin I (test code = WNL3404) 0.303 0-0.300 H [facility] HospitalHemoglobin A1c Oshwfof0823-36-84 05:51:00 * Test Item Value Reference Range Interpretation Comments Hemoglobin A1c Percent (test code = Hemoglobin A1c Percent) 7.0 4.0-7.0 [facility] HospitalThyroid Stimulating Hormone (TSH) 2019-06-15 16:14:00* Test Item Value Reference Range Interpretation Comments Thyroid Stimulating Hormone (TSH) (test code = 25866-5) 4.299 0.350-4.940 [facility] HospitalCHEST SINGLE (PORTABLE)2019-06-15 15:56:00 [place] [address] Patient Name: ROBBIE DANIELS MR #: [id number] : 1955 Age/Sex: 64/M Req #: [id number] Adm Physician: SEPIDEH BOSTON MD Ordered by: HARPREET CALI MD, MD Report #: [id number] Location: [facility] Room/Bed: [place] [address] Procedure: [id number] DX/CHEST SINGLE (PORTABLE) Exam Date: 06/15/19 Exam Time: 1530 REPORT STATUS: Sign ed Chest, 1 view, 06/15/2019. History: Chest pain. Compariso n: 04/13/2018. Findings: The cardiomediastinal silhouette and pulmonary vascu lature are within normal limits for a portable exam. There is no focal consoli dation or pleural effusion. There are no acute osseous or soft tissue abnorma lities. Impression: No acute cardiopulmonary abnormality. Signed b y: Aron Parks on 06/15/2019 3:57 PM Dictated By: ARON PARKS MD Elec tronically Signed By: ARON PARKS MD on 06/15/191556 Transcribed By: MAGDALENA on 06/15/191556 COPY TO: HARPREET CALI Hogrib8929-10-13 15:52:00* Test Item Value Reference Range Interpretation Comments Lipase (test code = 3040-3) [facility] 15:52:00* Test Item Value Reference Range Interpretation Comments Lipase (test code = 3040-3) [facility]2019-09-10 15:52:00* Test Item Value Reference Range Interpretation Comments Lipase (test code = 3040-3) [facility] Hospital[facility] Natriuretic Stlozhi9781-03-08 15:36:00* Test Item Value Reference Range Interpretation Comments B-Type Natriuretic Peptide (test code = 28827-6) 33.2 0-100 [facility] MOH1839-58-60 15:33:00* Test Item Value Reference Range Interpretation Comments Urine WBC (test code = 5821-4) 0-5 0-5 [facility] FLX5625-37-92 15:33:00* Test Item Value Reference Range Interpretation Comments Urine RBC (test code = 01538-0) NONE 0-5 [facility] Jwpwvktz3194-71-98 15:33:00* Test Item Value Reference Range Interpretation Comments Urine Bacteria (test code = 94675-7) FEW NONE [facility] Epithelial Nfxes1469-18-32 15:33:00 * Test Item Value Reference Range Interpretation Comments Urine Epithelial Cells (test code = 46655-1) NONE NONE [facility] Mdbfi9869-30-22 15:33:00* Test Item Value Reference Range Interpretation Comments Urine Mucus (test code = 8247-9) MODERATE RARE H [facility] MZP1488-22-13 15:33:00* Test Item Value Reference Range Interpretation Comments Urine WBC (test code = 5821-4) 0-5 0-5 [facility] QBK5139-40-34 15:33:00* Test Item Value Reference Range Interpretation Comments Urine RBC (test code = 03696-3) NONE 0-5 [facility] Rjxomicc6639-17-88 15:33:00* Test Item Value Reference Range Interpretation Comments Urine Bacteria (test code = 12346-2) FEW NONE [facility] Epithelial Ketyz9680-56-78 15:33:00 * Test Item Value Reference Range Interpretation Comments Urine Epithelial Cells (test code = 57472-2) NONE NONE [facility] Ntgvw1112-30-51 15:33:00* Test Item Value Reference Range Interpretation Comments Urine Mucus (test code = 8247-9) MODERATE RARE H [facility] Jtsta7975-85-74 15:33:00* Test Item Value Reference Range Interpretation Comments Urine Mucus (test code = 8247-9) MODERATE RARE H [facility] Caxew9611-25-11 15:13:00* Test Item Value Reference Range Interpretation Comments Urine Color (test code = 5778-6) YELLOW YELLOW [facility] Cgzsmev0769-08-96 15:13:00* Test Item Value Reference Range Interpretation Comments Urine Clarity (test code = 26149-7) CLEAR CLEAR [facility] Specific Zcopsfv6137-03-02 15:13:00 * Test Item Value Reference Range Interpretation Comments Urine Specific [place] (test code = 5811-5) 1.020 1.010-1.02 5 [facility] sN9290-75-74 15:13:00* Test Item Value Reference Range Interpretation Comments Urine pH (test code = 85441-5) 6 5-7 [facility] Leukocyte Djoqlbtz7630-03-61 15:13:00* Test Item Value Reference Range Interpretation Comments Urine Leukocyte Esterase (test code = 95535-8) NEGATIVE NEGATIV E [facility] Witsphd8943-76-43 15:13:00* Test Item Value Reference Range Interpretation Comments Urine Nitrite (test code = 28068-3) NEGATIVE NEGATIVE [facility] Hcgljay7513-31-88 15:13:00* Test Item Value Reference Range Interpretation Comments Urine Protein (test code = 04586-6) NEGATIVE NEGATIVE [facility] Glucose (UA)2019-06-15 15:13:00* Test Item Value Reference Range Interpretation Comments Urine Glucose (UA) (test code = 90320-1) NEGATIVE NEGATIVE [facility] Dputttk5583-35-36 15:13:00* Test Item Value Reference Range Interpretation Comments Urine Ketones (test code = 22573-4) NEGATIVE NEGATIVE [facility] Uenahdhjyzse5001-47-40 15:13:00* Test Item Value Reference Range Interpretation Comments Urine Urobilinogen (test code = 14993-2) 0.2 0.2-1 [facility] Apslrzqhn2498-21-42 15:13:00* Test Item Value Reference Range Interpretation Comments Urine Bilirubin (test code = 1977-8) NEGATIVE NEGATIVE [facility] Iufjx2556-36-68 15:13:00* Test Item Value Reference Range Interpretation Comments Urine Blood (test code = 60270-3) NEGATIVE NEGATIVE [facility] Zqkxy8358-28-60 15:13:00* Test Item Value Reference Range Interpretation Comments Urine Color (test code = 5778-6) YELLOW YELLOW [facility] Rktlwrl0783-69-36 15:13:00* Test Item Value Reference Range Interpretation Comments Urine Clarity (test code = 28707-6) CLEAR CLEAR [facility] Specific Avcbvks5698-19-35 15:13:00 * Test Item Value Reference Range Interpretation Comments Urine Specific [place] (test code = 5811-5) 1.020 1.010-1.02 5 [facility] zN5573-79-77 15:13:00* Test Item Value Reference Range Interpretation Comments Urine pH (test code = 13635-1) 6 5-7 [facility] Leukocyte Ugumdtpf3892-81-08 15:13:00* Test Item Value Reference Range Interpretation Comments Urine Leukocyte Esterase (test code = 01956-4) NEGATIVE NEGATIV E [facility] Ivaspdl2679-54-80 15:13:00* Test Item Value Reference Range Interpretation Comments Urine Nitrite (test code = 94136-1) NEGATIVE NEGATIVE [facility] Pinbwmo2267-53-04 15:13:00* Test Item Value Reference Range Interpretation Comments Urine Protein (test code = 27141-1) NEGATIVE NEGATIVE [facility] Glucose (UA)2019-06-15 15:13:00* Test Item Value Reference Range Interpretation Comments Urine Glucose (UA) (test code = 63441-1) NEGATIVE NEGATIVE [facility] Ssvqdgn6180-63-87 15:13:00* Test Item Value Reference Range Interpretation Comments Urine Ketones (test code = 16092-2) NEGATIVE NEGATIVE [facility] Isoisistcjzg3850-07-02 15:13:00* Test Item Value Reference Range Interpretation Comments Urine Urobilinogen (test code = 99136-5) 0.2 0.2-1 [facility] Yiqxhutop4758-49-93 15:13:00* Test Item Value Reference Range Interpretation Comments Urine Bilirubin (test code = 1977-8) NEGATIVE NEGATIVE [facility] Isfrb7741-38-79 15:13:00* Test Item Value Reference Range Interpretation Comments Urine Blood (test code = 23817-2) NEGATIVE NEGATIVE [facility] HospitalProthrombin Ytch3534-63-17 15:07:00* Test Item Value Reference Range Interpretation Comments Prothrombin Time (test code = 5902-2) 12.4 11.9-14.5 [facility] HospitalProthromb Time International Ratio 2019-06-15 15:07:00* Test Item Value Reference Range Interpretation Comments Prothromb Time International Ratio (test code = 6301-6) 0.88 Oral Anticoagulant Therapy INR Values:1. Low Intensity Therapy 1.5 - 2.02 . Moderate Intensity Therapy 2.0 - 3.03. High Intensity Therapy(1) 2.5 - 3. 54. High Intensity Therapy(2) 3.0 - 4.05. Panic Value INR > 5.0 [facility] HospitalActivated Partial Thromboplast Time 2019-06-15 15:07:00* Test Item Value Reference Range Interpretation Comments Activated Partial Thromboplast Time (test code = 12127-1) 31.4 23.8-35.5 [facility] HospitalCreatine Tqramt4018-01-07 15:07:00* Test Item Value Reference Range Interpretation Comments Creatine Kinase (test code = 2157-6) 51 30-200 [facility] HospitalCreatine Kinase NE3247-94-99 14:52:00* Test Item Value Reference Range Interpretation Comments Creatine Kinase MB (test code = 34014-0) 1.00 0-5.0 [facility] HospitalTroponin D3195-19-90 14:52:00* Test Item Value Reference Range Interpretation Comments Troponin I (test code = IPF6517) 0.006 0-0.300 [facility] HospitalBedside Efvmego7960-96-26 11:28:00* Test Item Value Reference Range Interpretation Comments Bedside Glucose (test code = 54798-9) 106 70-120 Meter ID: [id number] [facility] HospitalTriglycerides Level 2018-04-14 05:51:00* Test Item Value Reference Range Interpretation Comments Triglycerides Level (test code = 2571-8) 106 0-149 [facility] HospitalCholesterol Nnhwy1325-92-48 05:51:00* Test Item Value Reference Range Interpretation Comments Cholesterol Level (test code = 2093-3) 115 0-199 Less than 200 mg/dL Low Gpof130 - 239 mg/dL Borderline Fvmt947 m g/dl and greater High Risk [facility] HospitalLDL Opfjndcnxon7669-10-07 05:51:00* Test Item Value Reference Range Interpretation Comments LDL Cholesterol (test code = 2089-1) 85 60-130 [facility] HospitalHDL Arseguuieft5158-44-03 05:51:00* Test Item Value Reference Range Interpretation Comments HDL Cholesterol (test code = 2085-9) 9 40-60 L [facility] HospitalCholesterol/HDL Ixbun0100-49-85 05:51:00 * Test Item Value Reference Range Interpretation Comments Cholesterol/HDL Ratio (test code = 9830-1) 12.8 3.9-4.7 [facility] Mvijw6813-52-85 21:11:00* Test Item Value Reference Range Interpretation Comments Sodium Level (test code = 2951-2) 144 136-145 [facility] HospitalPotassium Rqpfv8523-50-50 21:11:00* Test Item Value Reference Range Interpretation Comments Potassium Level (test code = 2823-3) 4.4 3.5-5.1 [facility] HospitalChloride Juhzs4757-91-03 21:11:00* Test Item Value Reference Range Interpretation Comments Chloride Level (test code = 2075-0) 108 98-107 H [facility] HospitalCarbon Dioxide Bqsdi6697-39-47 21:11:00* Test Item Value Reference Range Interpretation Comments Carbon Dioxide Level (test code = 2028-9) 26 22-29 [facility] HospitalAnion Gri4177-07-78 21:11:00* Test Item Value Reference Range Interpretation Comments Anion Gap (test code = 22985-7) 14.4 8-16 [facility] HospitalBlood Urea Uhuhfeyx3839-75-86 21:11:00* Test Item Value Reference Range Interpretation Comments Blood Urea Nitrogen (test code = 3094-0) 13 7-26 [facility] HospitalCreatinine2018-07-09 21:11:00* Test Item Value Reference Range Interpretation Comments Creatinine (test code = 2160-0) 1.22 0.72-1.25 [facility] HospitalBUN/Creatinine Zztrc0571-00-21 21:11:00* Test Item Value Reference Range Interpretation Comments BUN/Creatinine Ratio (test code = 3097-3) 11 6- [facility] HospitalEstimat Glomerular Filtration Rate 2018-04-13 21:11:00* Test Item Value Reference Range Interpretation Comments Estimat Glomerular Filtration Rate (test code = 47234-6) 60 >60 Ranges were taken from the National Kidney Disease Education Program and the [facility] literature.Reference ranges:60 or greater: Pjdjao33-69 ( for 3 consecutive months): Chronic kidney disease 15 or less: Kidney failureFormerly [facility] HospitalGlucose Jckyw4860-02-21 21:11:00* Test Item Value Reference Range Interpretation Comments Glucose Level (test code = TCR3105) 112 74-118 [facility] HospitalCalcium Behbb6963-88-00 21:11:00* Test Item Value Reference Range Interpretation Comments Calcium Level (test code = 48161-2) 9.4 8.4-10.2 [facility] HospitalTotal Rfmhnojqt6881-25-60 21:11:00* Test Item Value Reference Range Interpretation Comments Total Bilirubin (test code = 1975-2) 0.5 0.2-1.2 [facility] HospitalAspartate Amino Transf (AST/SGOT) 2018-04-13 21:11:00* Test Item Value Reference Range Interpretation Comments Aspartate Amino Transf (AST/SGOT) (test code = Aspartate Amino Transf (AST/SGOT)) 14 5-34 [facility] HospitalAlanine Aminotransferase (ALT/SGPT) 2018-04-13 21:11:00* Test Item Value Reference Range Interpretation Comments Alanine Aminotransferase (ALT/SGPT) (test code = 1742-6) 17 0-55 [facility] HospitalTotal Xhkkgbd4971-37-14 21:11:00* Test Item Value Reference Range Interpretation Comments Total Protein (test code = 2885-2) 6.9 6.5-8.1 [facility] HospitalAlbumin2018-07-09 21:11:00* Test Item Value Reference Range Interpretation Comments Albumin (test code = 1751-7) 3.7 3.5-5.0 [facility] HospitalGlobulin2018-07-09 21:11:00* Test Item Value Reference Range Interpretation Comments Globulin (test code = 52413-1) 3.2 2.3-3.5 [facility] HospitalAlbumin/Globulin Jzqmc7711-13-04 21:11:00 * Test Item Value Reference Range Interpretation Comments Albumin/Globulin Ratio (test code = 1759-0) 1.2 0.8-2.0 [facility] HospitalAlkaline Jrripzjzltq6174-89-76 21:11:00* Test Item Value Reference Range Interpretation Comments Alkaline Phosphatase (test code = 6768-6) 75 40-150 [facility] HospitalCHEST SINGLE (PORTABLE)2018-04-13 21:00:00 [place] [address] Patient Name: ROBBIE DANIELS MR #: [id number] : 1955 Age/Sex: 63/M Req #: [id number] Adm Physician: Ordered by: ROSALBA VERA NP Report #: [id number] Location: ER Room/Bed: Procedure: [id number] DX/CHEST SINGLE (PORTAB LE) Exam Date: 04/13/18 Exam Time: 2039 REPORT STATUS: Signed EXAMINATION: CHEST SINGLE (PORTABLE) INDICATION: Chest pain. COMPARISON: Chest x-ray 05/14/2013. FINDINGS: AP v iew TUBES and LINES: None. LUNGS: Lungs are well inflated. Lungs are clear. There is no evidence of pneumonia or pulmonary edema. PLEURA: No pleural effusion or pneumothorax. HEART AND MEDIASTINUM: The cardiome diastinal silhouette is unremarkable. BONES AND SOFT TISSUES: No acute osseous lesion. Soft tissues are unremarkable. UPPER ABDOMEN: No free a ir under the diaphragm. IMPRESSION: No acute thoracic abnormality. Signed by: Dr. Jovon Carl M.D. on 04/13/2018 9:00 PM Dictated By: JOVON CARL MD 99 Transcribed By: Armani MTZ on 04/13/182099 COPY TO: ROSALBA VERA NP Prothrombin Pzrm6727-51-49 20:59:00* Test Item Value Reference Range Interpretation Comments Prothrombin Time (test code = 5902-2) 12.8 11.9-14.5 [facility] HospitalProthromb Time International Ratio 2018-04-13 20:59:00* Test Item Value Reference Range Interpretation Comments Prothromb Time International Ratio (test code = 6301-6) 1.04 Oral Anticoagulant Therapy INR Values:1. Low Intensity Therapy 1.5 - 2.02 . Moderate Intensity Therapy 2.0 - 3.03. High Intensity Therapy(1) 2.5 - 3. 54. High Intensity Therapy(2) 3.0 - 4.05. Panic Value INR > 5.0 [facility] HospitalActivated Partial Thromboplast Time 2018-04-13 20:59:00* Test Item Value Reference Range Interpretation Comments Activated Partial Thromboplast Time (test code = 85703-4) 28.8 23.8-35.5 [facility] HospitalWhite Blood Yyvfs9583-27-42 20:50:00* Test Item Value Reference Range Interpretation Comments White Blood Count (test code = 6690-2) 9.04 4.8-10.8 [facility] HospitalRed Blood Khofw8525-00-96 20:50:00* Test Item Value Reference Range Interpretation Comments Red Blood Count (test code = 789-8) 4.32 4.3-5.7 [facility] HospitalHemoglobin2018-07-09 20:50:00* Test Item Value Reference Range Interpretation Comments Hemoglobin (test code = 79443-8) 13.2 14.0-18.0 L [facility] HospitalHematocrit2018-07-09 20:50:00* Test Item Value Reference Range Interpretation Comments Hematocrit (test code = 4544-3) 40.8 38.2-49.6 [facility] HospitalMean Corpuscular Teeiph0744-12-59 20:50:00* Test Item Value Reference Range Interpretation Comments Mean Corpuscular Volume (test code = 787-2) 94.4 81-99 [facility] HospitalMean Corpuscular Praywgllbh0457-25-57 20:50:00* Test Item Value Reference Range Interpretation Comments Mean Corpuscular Hemoglobin (test code = 785-6) 30.6 28-32 [facility] HospitalMean Corpuscular Hemoglobin Concent 2018-04-13 20:50:00* Test Item Value Reference Range Interpretation Comments Mean Corpuscular Hemoglobin Concent (test code = 786-4) 32.4 31-35 [facility] HospitalRed Cell Distribution Veplo7073-69-24 20:50:00* Test Item Value Reference Range Interpretation Comments Red Cell Distribution Width (test code = 16528-6) 14.4 11.7 -14.4 [facility] HospitalPlatelet Lgzlo1160-86-79 20:50:00* Test Item Value Reference Range Interpretation Comments Platelet Count (test code = 777-3) 215 140-360 [facility] HospitalNeutrophils (%) (Auto)2018-04-13 20:50:00 * Test Item Value Reference Range Interpretation Comments Neutrophils (%) (Auto) (test code = 44982-1) 69.7 38.7-80.0 [facility] HospitalLymphocytes (%) (Auto)2018-04-13 20:50:00 * Test Item Value Reference Range Interpretation Comments Lymphocytes (%) (Auto) (test code = 736-9) 19.6 18.0-39.1 [facility] HospitalMonocytes (%) (Auto)2018-04-13 20:50:00* Test Item Value Reference Range Interpretation Comments Monocytes (%) (Auto) (test code = 5905-5) 7.5 4.4-11.3 [facility] HospitalEosinophils (%) (Auto)2018-04-13 20:50:00 * Test Item Value Reference Range Interpretation Comments Eosinophils (%) (Auto) (test code = 713-8) 2.2 0.0-6.0 [facility] HospitalBasophils (%) (Auto)2018-04-13 20:50:00* Test Item Value Reference Range Interpretation Comments Basophils (%) (Auto) (test code = 706-2) 0.6 0.0-1.0 [facility] HospitalIM GRANULOCYTES %2018-04-13 20:50:00* Test Item Value Reference Range Interpretation Comments IM GRANULOCYTES % (test code = IM GRANULOCYTES %) 0.4 0.0- 1.0 [facility] HospitalNeutrophils # (Auto)2018-04-13 20:50:00* Test Item Value Reference Range Interpretation Comments Neutrophils # (Auto) (test code = 751-8) 6.3 2.1-6.9 [facility] HospitalLymphocytes # (Auto)2018-04-13 20:50:00* Test Item Value Reference Range Interpretation Comments Lymphocytes # (Auto) (test code = 91015-9) 1.8 1.0-3.2 [facility] HospitalMonocytes # (Auto)2018-04-13 20:50:00* Test Item Value Reference Range Interpretation Comments Monocytes # (Auto) (test code = 742-7) 0.7 0.2-0.8 [facility] HospitalEosinophils # (Auto)2018-04-13 20:50:00* Test Item Value Reference Range Interpretation Comments Eosinophils # (Auto) (test code = 711-2) 0.2 0.0-0.4 [facility] HospitalBasophils # (Auto)2018-04-13 20:50:00* Test Item Value Reference Range Interpretation Comments Basophils # (Auto) (test code = 704-7) 0.1 0.0-0.1 [facility] HospitalAbsolute Immature Granulocyte (auto 2018-04-13 20:50:00* Test Item Value Reference Range Interpretation Comments Absolute Immature Granulocyte (auto (isabel t code = Absolute Immature Granulocyte (auto) 0.04 0-0.1 [facility]
[2020-08-27 16:41] LABS: BASOPHILS # (AUTO) 0.1 (0.0-0.1); BASOPHILS % 0.6 % (0.0-1.0); EOSINOPHILS # (AUTO) 0.2 (0.0-0.4); EOSINOPHILS % 1.5 % (0.0-6.0); HEMATOCRIT 45.2 % (38.2-49.6); HEMOGLOBIN 14.3 g/dL (14.0-18.0); LYMPHOCYTES # (AUTO) 1.9 (1.0-3.2); MEAN CORPUSCULAR HEMOGLOBIN 29.2 pg (28-32); MEAN CORPUSCULAR HGB CONC 31.6 g/dL (31-35); MEAN CORPUSCULAR VOLUME 92.4 fL (81-99); MONOCYTES # (AUTO) 0.6 (0.2-0.8); MONOCYTES % 5.7 % (4.4-11.3); NEUTROPHILS # (AUTO) 8.3 (2.1-6.9); NEUTROPHILS % 74.7 % (38.7-80.0); PLATELET COUNT 245 x10e3/uL (140-360); RED BLOOD COUNT 4.89 x10e6/uL (4.3-5.7); RED CELL DISTRIBUTION WIDTH 14.6 % (11.7-14.4)
[2020-08-27 16:56] LABS: ALANINE AMINOTRANSFERASE 22 IU/L (0-55); ALBUMIN 3.9 g/dL (3.5-5.0); ALBUMIN/GLOBULIN RATIO 1.1 (0.8-2.0); ALKALINE PHOSPHATASE 111 IU/L (40-150); ANION GAP 16.3 mmol/L (8-16); BLOOD UREA NITROGEN 14 mg/dL (7-26); BUN/CREATININE RATIO 11 (6-25); CALCIUM 9.3 mg/dL (8.4-10.2); CARBON DIOXIDE 28 mmol/L (22-29); CHLORIDE 101 mmol/L (98-107); CREATINE KINASE 57 IU/L (30-200); CREATININE, SERUM 1.33 mg/dL (0.72-1.25); EST GLOMERULAR FILTRATION RATE 54 ML/MIN (60-); GLUCOSE 187 mg/dL (74-118); POTASSIUM 4.3 mmol/L (3.5-5.1); SODIUM 141 mmol/L (136-145)
--- NOTE | 2020-08-27 17:19 | Emergency Department Note ---
History of Present Illnes History of Present Illness Chief Complaint: Diabetic Crisis History of Present Illness This is a 65 year old male arrived to the ED with concerns of being a diabetic crisis. Patient continued to state he smoking in his urine. Patient states he is not compliant with metformin that he should take as directed. Patient came to the ER because he said his hemoglobin A1c is trending up and he doesn't know what to do. Patient admits to not being compliant with his diabetic regimen. Chief Complaint Comment PATIENT IN FROM HOME WITH COMPLAINTS OF NAUSEA X 1 HOUR; STATES THAT HE ATE AT [facility] AND THEN BECAME NAUSEATED. PATIENT STATES THAT HIS HGB A1C WAS 10.7. PATIENT ALERT AND ORIENTED, RESP EVEN AND NONLABORED, APPEARS IN NO DISTRESS, DENIES PAIN Historian: Patient Arrival Mode: Car Onset (how long ago): month(s) Radiation: Reports non-radiation Severity: mild Onset quality: sudden Duration (how long): month(s) Timing of current episode: constant Progression: worsening Chronicity: new Relieving factors: none Exacerbating factors: none Past Medical/Family History Physician Review I have reviewed the patient's past medical and family history. Any updates have been documented here. Past Medical History Recent Fever: No Clinical Suspicion of Infectio: No New/Unexplained Change in Ment: No Past Medical History: Hypertension, Diabetes, SD, Anxiety Other Medical History: KIDNEY STONES Past Surgical History: PCI Other Surgery: CARDIAC STENTS Social History Physically hurt or threatened: No Other Last Tetanus: UTD Review of Systems Review of Systems Constitutional: Reports no symptoms EENTM: Reports no symptoms Cardiovascular: Reports no symptoms Respiratory: Reports no symptoms Gastrointestinal: Reports no symptoms Genitourinary: Reports no symptoms Musculoskeletal: Reports no symptoms Integumentary: Reports no symptoms Neurological: Reports no symptoms Psychological: Reports no symptoms Endocrine: Reports as per HPI, Reports increased thirst, Reports increased urination Hematological/Lymphatic: Reports no symptoms Physical Exam Related Data Allergies: Coded Allergies: ANN Inhibitors (Verified Allergy, Severe, ANGIOEDEMA, 08/27/20) Penicillins (Verified Allergy, Severe, 08/27/20) Sulfa (Sulfonamide Antibiotics) (Verified Allergy, Severe, BURNING, 08/27/20) morphine (Verified Allergy, Severe, HEART STOPPED, 08/27/20) Metronidazole HCl (Verified Allergy, Unknown, 08/27/20) metronidazole (Verified Allergy, Unknown, 08/27/20) Triage Vital Signs Vital Signs Date Time Temp Pulse Resp B/P (MAP) Pulse Ox O2 Delivery O2 Flow Rate FiO2 08/27/20 15:48 98.4 90 20 179/100 100 Room Air Vital signs reviewed: Yes Physical Exam CONSTITUTIONAL Constitutional: Present well-developed, Present well-nourished, Present morbi dly obese HENT HENT: Present normocephalic, Present atraumatic, Present oropharynx clear/moist, Present nose normal HENT L/R: Present left ext ear normal, Present right ext ear normal EYES Eyes: Reports PERRL, Reports conjunctivae normal NECK Neck: Present ROM normal PULMONARY Pulmonary: Present effort normal, Present breath sounds normal CARDIOVASCULAR Cardiovascular: Present regular rhythm, Present heart sounds normal, Present capillary refill normal, Present normal rate GASTROINTESTINAL Abdominal: Present soft, Present nontender, Present bowel sounds normal GENITOURINARY Genitourinary: Present exam deferred SKIN Skin: Present warm, Present dry MUSCULOSKELETAL Musculoskeletal: Present ROM normal NEUROLOGICAL Neurological: Present alert, Present oriented x 3, Present no gross motor or sensory deficits PSYCHOLOGICAL Psychological: Present mood/affect normal, Present judgement normal Results Laboratory Result Diagram: 08/27/20 1600 08/27/20 1600 Laboratory Laboratory Tests Test 08/27/20 16:00 White Blood Count 11.15 x10e3/uL (4.8-10.8) Red Blood Count 4.89 x10e6/uL (4.3-5.7) Hemoglobin 14.3 g/dL (14.0-18.0) Hematocrit 45.2 % (38.2-49.6) Mean Corpuscular Volume 92.4 fL (81-99) Mean Corpuscular Hemoglobin 29.2 pg (28-32) Mean Corpuscular Hemoglobin Concent 31.6 g/dL (31-35) Red Cell Distribution Width 14.6 % (11.7-14.4) Platelet Count 245 x10e3/uL (140-360) Neutrophils (%) (Auto) 74.7 % (38.7-80.0) Lymphocytes (%) (Auto) 17.0 % (18.0-39.1) Monocytes (%) (Auto) 5.7 % (4.4-11.3) Eosinophils (%) (Auto) 1.5 % (0.0-6.0) Basophils (%) (Auto) 0.6 % (0.0-1.0) Neutrophils # (Auto) 8.3 (2.1-6.9) Lymphocytes # (Auto) 1.9 (1.0-3.2) Monocytes # (Auto) 0.6 (0.2-0.8) Eosinophils # (Auto) 0.2 (0.0-0.4) Basophils # (Auto) 0.1 (0.0-0.1) Absolute Immature Granulocyte (auto 0.06 x10e3/uL (0-0.1) Sodium Level 141 mmol/L (136-145) Potassium Level 4.3 mmol/L (3.5-5.1) Chloride Level 101 mmol/L (98-107) Carbon Dioxide Level 28 mmol/L (22-29) Anion Gap 16.3 mmol/L (8-16) Blood Urea Nitrogen 14 mg/dL (7-26) Creatinine 1.33 mg/dL (0.72-1.25) Estimat Glomerular Filtration Rate 54 ML/MIN (60-) BUN/Creatinine Ratio 11 (6-25) Glucose Level 187 mg/dL (74-118) Calcium Level 9.3 mg/dL (8.4-10.2) Total Bilirubin 0.4 mg/dL (0.2-1.2) Aspartate Amino Transf (AST/SGOT) 15 IU/L (5-34) Alanine Aminotransferase (ALT/SGPT) 22 IU/L (0-55) Alkaline Phosphatase 111 IU/L (40-150) Creatine Kinase 57 IU/L (30-200) Creatine Kinase MB 1.20 ng/mL (0-5.0) Troponin I < 0.001 ng/mL (0-0.300) Total Protein 7.5 g/dL (6.5-8.1) Albumin 3.9 g/dL (3.5-5.0) Globulin 3.6 g/dL (2.3-3.5) Albumin/Globulin Ratio 1.1 (0.8-2.0) Lab results reviewed: Yes Assessment & Plan Medical Decision Making MDM This patient is a 65-year-old male presenting with apparent acute hyperglycemia. Differential diagnosis includes dehydration, acute renal failure, other infect ious process. Considered DKA versus HHS, sepsis as possible etiologies of the patients current presentation. However, given the current history & physical, including current glucose level, the current presentation is consistent with acute, asymptomatic hyperglycemia. Plan to treatment supportively. No indication for further workup at this time. Plan: supportive care, serial POC glucose monitoring, labs, serial reassessment Assessment & Plan Final Impression: (1) Hyperglycemia Depart Disposition: HOME, SELF-CARE Last Vital Signs Date Time Temp Pulse Resp B/P (MAP) Pulse Ox O2 Delivery O2 Flow Rate FiO2 08/27/20 15:48 98.4 90 20 179/100 100 Room Air Home Meds Active Scripts Levothyroxine Sodium (LEVOTHYROXINE SODIUM) 25 Mcg Tablet, 25 MCG PO DAILY@06 for 30 Days, 2 Refills Prov:HAILEE SHAFFER GRANTS ADMINISTRATOR 10/30/19 Aspirin (ASPIRIN ENTERIC COATED) 325 Mg Tabec, 325 MG PO QAM for 30 Days Prov:EDMUNDHAILEE PAEZ GRANTS ADMINISTRATOR 10/30/19 Reported Medications Furosemide (FUROSEMIDE) 40 Mg Tablet, 40 MG PO DAILY 10/27/19 Atorvastatin Calcium (ATORVASTATIN CALCIUM) 20 Mg Tablet, 40 MG PO DAILY 06/18/19 Isosorbide Mononitrate (ISOSORBIDE MONONITRATE ER) 120 Mg Tab.er.24h, 120 MG PO DAILY 06/18/19 Clopidogrel Bisulfate (CLOPIDOGREL) 75 Mg Tablet, 75 MG PO DAILY 06/18/19 Carvedilol (CARVEDILOL) 25 Mg Tablet, 25 MG PO BID 06/18/19 Glipizide (GLIPIZIDE) 5 Mg Tablet, 5 MG PO BID 06/18/19 Metformin Hcl (METFORMIN HCL) 500 Mg Tablet, 500 MG PO TID, #60 TAB 06/16/19 ERNA ROBLERO DO Aug 27, 2020 17:13
[2020-08-27] MEDS: SODIUM CHLORIDE 0.9% 1000ML 1,000 ML IV STA (17:25)
[2020-08-27 18:32] VITALS: BP 134/84
== END 2020-08-27 18:35 | disposition home or self-care (01) ==
LOC: ER 16:21
DX: E11.65 Type 2 diabetes mellitus with hyperglycemia (principal); I10 Essential (primary) hypertension; F41.9 Anxiety disorder, unspecified; I25.2 Old myocardial infarction
CPT/HCPCS: 36415; 80053; 82550; 82553; 83690; 84484; 85025; 99284; J7030

== ENCOUNTER 2021-07-31 14:30 | Inpatient (IN) | payer MEDICARE, OTHER ==
[~2021-07-31] VITALS: Ht 177.8 cm; Wt 126.1 kg
[2021-07-31 15:13] LABS: BASOPHILS # (AUTO) 0.1 (0.0-0.1); BASOPHILS % 0.5 % (0.0-1.0); EOSINOPHILS # (AUTO) 0.2 (0.0-0.4); EOSINOPHILS % 1.6 % (0.0-6.0); HEMATOCRIT 42.8 % (38.2-49.6); HEMOGLOBIN 13.5 g/dL (14.0-18.0); LYMPHOCYTES # (AUTO) 1.5 (1.0-3.2); LYMPHOCYTES % 16.4 % (18.0-39.1); MEAN CORPUSCULAR HEMOGLOBIN 29.8 pg (28-32); MEAN CORPUSCULAR HGB CONC 31.5 g/dL (31-35); MEAN CORPUSCULAR VOLUME 94.5 fL (81-99); MONOCYTES # (AUTO) 0.5 (0.2-0.8); MONOCYTES % 5.6 % (4.4-11.3); NEUTROPHILS % 75.4 % (38.7-80.0); PLATELET COUNT 207 x10e3/uL (140-360); RED BLOOD COUNT 4.53 x10e6/uL (4.3-5.7); RED CELL DISTRIBUTION WIDTH 14.3 % (11.7-14.4)
[2021-07-31] MEDS ORDERED: ASPIRIN 81 MG CHEW TAB PO ONE (15:15)
[2021-07-31 15:25] LABS: INR 0.97; PROTHROMBIN TIME 13.3 seconds (11.9-14.5)
[2021-07-31 15:26] LABS: PARTIAL THROMBOPLASTIN TIME 26.4 seconds (23.8-35.5)
[2021-07-31 15:34] LABS: ALBUMIN 3.6 g/dL (3.5-5.0); ANION GAP 14.7 mmol/L (8-16); CALCIUM 8.9 mg/dL (8.4-10.2); CREATININE, SERUM 1.47 mg/dL (0.72-1.25); MAGNESIUM 1.7 MG/DL (1.3-2.1); POTASSIUM 4.7 mmol/L (3.5-5.1)
[2021-07-31 15:40] LABS: CREATINE KINASE MB 4.6 ng/mL (0-5.0)
[2021-07-31] MEDS: NITROGLYCERIN 0.1MG/HR PATCH TOP SCH (16:39)
[2021-07-31 20:00] VITALS: BP 121/74
[2021-07-31] MEDS ORDERED: DEXTROSE 50% SYRINGE 50 ML IV PRN (20:15)
[2021-07-31 20:18] VITALS: BP 121/74
[2021-07-31 21:06] VITALS: BP 121/74
[2021-07-31] MEDS: INSULIN LISPRO 100 UNIT/1 ML 3ML VIAL SQ SCH (21:15)
[2021-07-31] MEDS: METFORMIN HCL 500 MG TAB PO SCH (21:27)
[2021-07-31] MEDS: ATORVASTATIN 20 MG TAB PO SCH (21:27)
[2021-08-01] VITALS (7 sets, daily range): BP systolic 126–162; BP diastolic 65–85
[2021-08-01 04:05] LABS: CREATINE KINASE MB 3.7 ng/mL (0-5.0)
[2021-08-01] MEDS: LEVOTHYROXINE SODIUM 25 MCG TABLET PO SCH (05:15)
[2021-08-01] MEDS ORDERED: LEVOTHYROXINE SODIUM 25 MCG TABLET PO SCH (06:00)
[2021-08-01 06:41] LABS: CHOL/HDL RATIO 5.9 (3.9-4.7)
[2021-08-01 06:42] LABS: MAGNESIUM 1.7 MG/DL (1.3-2.1); PHOSPHORUS 3.4 MG/DL (2.3-4.7)
[2021-08-01 07:02] LABS: THYROID STIMULATING HORMONE 4.39 uIU/mL (0.350-4.940)
[2021-08-01] MEDS: INSULIN LISPRO 100 UNIT/1 ML 3ML VIAL SQ SCH ×4 (07:30→21:30)
[2021-08-01] MEDS ORDERED: REGADENOSON 0.4 MG/5 ML SYR IV ONE (09:50)
[2021-08-01] MEDS ORDERED: OLMESARTAN MEDOXOMIL 5 MG TABLET PO ONE (10:30)
[2021-08-01] MEDS ORDERED: OLMESARTAN MEDOXOMIL 5 MG TABLET PO SCH (11:00)
[2021-08-01] MEDS: ASPIRIN 325 MG TAB EC PO SCH (11:51)
[2021-08-01] MEDS: FUROSEMIDE 40 MG TAB PO SCH (11:51)
[2021-08-01] MEDS: GLIPIZIDE 5 MG TAB PO SCH ×2 (11:51→17:20)
[2021-08-01] MEDS: CARVEDILOL 12.5 MG TAB PO SCH ×2 (11:51→17:20)
[2021-08-01] MEDS: METFORMIN HCL 500 MG TAB PO SCH ×3 (11:51→17:20)
[2021-08-01] MEDS: CLOPIDOGREL BISULFATE 75 MG TAB PO SCH (11:52)
[2021-08-01] MEDS: NITROGLYCERIN 0.1MG/HR PATCH TOP SCH (11:52)
[2021-08-01] MEDS: GABAPENTIN 100 MG CAP PO SCH (21:21)
[2021-08-01] MEDS: ATORVASTATIN 20 MG TAB PO SCH (21:21)
[2021-08-02] VITALS (8 sets, daily range): BP systolic 120–137; BP diastolic 62–83
[2021-08-02 04:58] LABS: BASOPHILS % 0.4 % (0.0-1.0); EOSINOPHILS # (AUTO) 0.2 (0.0-0.4); EOSINOPHILS % 2.3 % (0.0-6.0); HEMATOCRIT 40.2 % (38.2-49.6); HEMOGLOBIN 12.8 g/dL (14.0-18.0); LYMPHOCYTES # (AUTO) 2.2 (1.0-3.2); LYMPHOCYTES % 24.1 % (18.0-39.1); MEAN CORPUSCULAR HEMOGLOBIN 29.5 pg (28-32); MEAN CORPUSCULAR HGB CONC 31.8 g/dL (31-35); MEAN CORPUSCULAR VOLUME 92.6 fL (81-99); MONOCYTES # (AUTO) 0.6 (0.2-0.8); MONOCYTES % 6.9 % (4.4-11.3); NEUTROPHILS % 65.9 % (38.7-80.0); PLATELET COUNT 183 x10e3/uL (140-360); RED BLOOD COUNT 4.34 x10e6/uL (4.3-5.7); RED CELL DISTRIBUTION WIDTH 14.3 % (11.7-14.4)
[2021-08-02 05:31] LABS: POTASSIUM 4.1 mmol/L (3.5-5.1)
[2021-08-02 05:32] LABS: ALBUMIN 3.3 g/dL (3.5-5.0); ANION GAP 17.1 mmol/L (8-16); CALCIUM 8.4 mg/dL (8.4-10.2); CREATININE, SERUM 1.15 mg/dL (0.72-1.25)
[2021-08-02] MEDS: LEVOTHYROXINE SODIUM 25 MCG TABLET PO SCH (06:00)
[2021-08-02] MEDS: INSULIN LISPRO 100 UNIT/1 ML 3ML VIAL SQ SCH ×4 (07:30→20:38)
[2021-08-02] MEDS: PANTOPRAZOLE SOD 40 MG TABEC PO SCH (08:30)
[2021-08-02] MEDS: ASPIRIN 325 MG TAB EC PO SCH (08:32)
[2021-08-02] MEDS: OLMESARTAN MEDOXOMIL 5 MG TABLET PO SCH (08:32)
[2021-08-02] MEDS: CARVEDILOL 12.5 MG TAB PO SCH ×2 (08:32→16:02)
[2021-08-02] MEDS: METFORMIN HCL 500 MG TAB PO SCH ×3 (08:33→20:47)
[2021-08-02] MEDS: FUROSEMIDE 40 MG TAB PO SCH (08:33)
[2021-08-02] MEDS: CLOPIDOGREL BISULFATE 75 MG TAB PO SCH (08:33)
[2021-08-02] MEDS: GLIPIZIDE 5 MG TAB PO SCH ×2 (08:33→16:02)
[2021-08-02] MEDS: GABAPENTIN 100 MG CAP PO SCH (08:33)
[2021-08-02] MEDS: NITROGLYCERIN 0.1MG/HR PATCH TOP SCH (08:34)
[2021-08-02] MEDS: ATORVASTATIN 20 MG TAB PO SCH (20:47)
[2021-08-03] VITALS: BP 133/76
[2021-08-03 04:00] VITALS: BP 125/76
[2021-08-03] MEDS: LEVOTHYROXINE SODIUM 25 MCG TABLET PO SCH (05:37)
[2021-08-03] MEDS ORDERED: FENTANYL CITRATE/PF 100MCG/2 ML INJ ONE (07:59)
[2021-08-03] MEDS ORDERED: LIDOCAINE HCL 2% LOCAL 20 ML VIAL ONE (07:59)
[2021-08-03] MEDS ORDERED: MIDAZOLAM HCL 2 MG/2 ML VIAL ONE (07:59)
[2021-08-03] MEDS ORDERED: SODIUM CHLORIDE 0.9% 1000ML 1,000 ML ONE (08:00)
[2021-08-03] MEDS ORDERED: HEPARIN SOD/SOD CHLORIDE 2,000 ML ONE (08:00)
[2021-08-03] MEDS ORDERED: IOPAMIDOL 370 MG/ML 200 ML INFUS..BTL INJ ONE ×2 (08:00→09:40)
[2021-08-03 08:14] VITALS: BP 127/73
[2021-08-03] MEDS: CLOPIDOGREL BISULFATE 75 MG TAB PO SCH (08:29)
[2021-08-03] MEDS: CARVEDILOL 12.5 MG TAB PO SCH ×2 (08:30→16:32)
[2021-08-03] MEDS: INSULIN LISPRO 100 UNIT/1 ML 3ML VIAL SQ SCH ×3 (08:31→16:33)
[2021-08-03 09:00] VITALS: BP 127/73
[2021-08-03] MEDS ORDERED: SODIUM CHLORIDE 0.9% 50ML 50 ML ONE (09:27)
[2021-08-03] MEDS ORDERED: BIVALRIUDIN 250 MG/VIAL VIAL IV ONE (09:27)
[2021-08-03] MEDS ORDERED: ASPIRIN 325 MG TAB ONE (09:47)
[2021-08-03] MEDS ORDERED: CLOPIDOGREL BISULFATE 75 MG TAB ONE (09:47)
[2021-08-03] MEDS: ASPIRIN 325 MG TAB EC PO SCH (10:09)
[2021-08-03] MEDS: METFORMIN HCL 500 MG TAB CR PO SCH ×2 (10:09→16:32)
[2021-08-03] MEDS: OLMESARTAN MEDOXOMIL 5 MG TABLET PO SCH (10:09)
[2021-08-03] MEDS: PANTOPRAZOLE SOD 40 MG TABEC PO SCH (10:09)
[2021-08-03] MEDS: GLIPIZIDE 5 MG TAB PO SCH ×2 (10:09→16:32)
[2021-08-03] MEDS: FUROSEMIDE 40 MG TAB PO SCH (10:09)
[2021-08-03] MEDS: GABAPENTIN 100 MG CAP PO SCH (10:10)
[2021-08-03] MEDS: NITROGLYCERIN 0.1MG/HR PATCH TOP SCH (10:10)
[2021-08-03 12:06] VITALS: BP 150/68
[2021-08-03] MEDS ORDERED: DOXYCYCLINE HY100 MG PO (15:03)
[2021-08-03 16:26] VITALS: BP 126/68
== END 2021-08-03 17:35 | disposition home or self-care (01) | DRG 251 ==
LOC: ER 14:53 → ERHOLD 16:27 → INTOOBSV 16:27 → MED/SURG 17:38 → OBSVTOIN 08-01 18:02
PROVIDERS: ADMIT Internal Medicine; ATTEND Internal Medicine
PROC: 4A023N7 Measurement of Cardiac Sampling and Pressure, Left Heart, Percutaneous Approach (ICD-10-PCS; principal; 2021-08-03)
PROC: 02703ZZ Dilation of Coronary Artery, One Artery, Percutaneous Approach (ICD-10-PCS; 2021-08-03)
PROC: B2111ZZ Fluoroscopy of Multiple Coronary Arteries using Low Osmolar Contrast (ICD-10-PCS; 2021-08-03)
PROC: B2151ZZ Fluoroscopy of Left Heart using Low Osmolar Contrast (ICD-10-PCS; 2021-08-03)
DX: T82.855A Stenosis of coronary artery stent, initial encounter (principal); I50.22 Chronic systolic (congestive) heart failure; N17.9 Acute kidney failure, unspecified; I25.10 Atherosclerotic heart disease of native coronary artery without angina pectoris; Z95.5 Presence of coronary angioplasty implant and graft; I11.0 Hypertensive heart disease with heart failure; F41.9 Anxiety disorder, unspecified; E11.42 Type 2 diabetes mellitus with diabetic polyneuropathy; E03.9 Hypothyroidism, unspecified; E78.5 Hyperlipidemia, unspecified; I25.2 Old myocardial infarction; Z87.442 Personal history of urinary calculi; Z88.5 Allergy status to narcotic agent; Z88.0 Allergy status to penicillin; Z88.2 Allergy status to sulfonamides; Z88.8 Allergy status to other drugs, medicaments and biological substances; E11.65 Type 2 diabetes mellitus with hyperglycemia; Z79.84 Long term (current) use of oral hypoglycemic drugs
CPT/HCPCS: 36415; 71045; 78452; 80053; 80061; 82550; 82553; 82948; 83036; 83735; 83880; 84100; 84443; 84484; 85025; 85610; 85730; 92928; 93005; 93017; 93306; 93458; 99152; 99153; 99284; A9502; C1725; C1760; C1769; C1887; C9600; G0378; J0583; J2001; J2250; J3010; J7030; Q9967; U0002

== ENCOUNTER 2021-10-07 13:42 | Inpatient (IN) | payer MEDICARE, OTHER ==
[~2021-10-07] VITALS: Ht 177.8 cm; Wt 119.7 kg
[~2021-10-07 13:42] MED LIST changes: +DOXYCYCLINE HY100 MG PO
[2021-10-07] MEDS ORDERED: HYDROCODONE/APAP 5MG-325MG TAB PO ONE (14:00)
[2021-10-07 14:19] LABS: BASOPHILS # (AUTO) 0.1 (0.0-0.1); BASOPHILS % 0.5 % (0.0-1.0); EOSINOPHILS # (AUTO) 0.1 (0.0-0.4); EOSINOPHILS % 1.3 % (0.0-6.0); HEMATOCRIT 43.9 % (38.2-49.6); HEMOGLOBIN 13.9 g/dL (14.0-18.0); LYMPHOCYTES # (AUTO) 1.7 (1.0-3.2); LYMPHOCYTES % 15.5 % (18.0-39.1); MEAN CORPUSCULAR HEMOGLOBIN 29.8 pg (28-32); MEAN CORPUSCULAR HGB CONC 31.7 g/dL (31-35); MEAN CORPUSCULAR VOLUME 94.2 fL (81-99); MONOCYTES # (AUTO) 0.7 (0.2-0.8); MONOCYTES % 6.7 % (4.4-11.3); NEUTROPHILS # (AUTO) 8.1 (2.1-6.9); NEUTROPHILS % 75.5 % (38.7-80.0); PLATELET COUNT 209 x10e3/uL (140-360); RED BLOOD COUNT 4.66 x10e6/uL (4.3-5.7)
[2021-10-07 14:30] LABS: INR 0.95; PARTIAL THROMBOPLASTIN TIME 28.1 seconds (23.8-35.5); PROTHROMBIN TIME 13.4 seconds (11.9-14.5)
[2021-10-07 14:36] LABS: ALBUMIN 3.8 g/dL (3.5-5.0); ALBUMIN/GLOBULIN RATIO 1.1 (0.8-2.0); ANION GAP 15.3 mmol/L (8-16); CREATININE, SERUM 1.2 mg/dL (0.72-1.25); POTASSIUM 4.3 mmol/L (3.5-5.1)
[2021-10-07 14:42] LABS: CREATINE KINASE MB 1.2 ng/mL (0-5.0)
[2021-10-07 14:58] LABS: CLARITY,URINE HAZY (CLEAR); COLOR,URINE YELLOW (YELLOW); KETONES,URINE NEGATIVE (NEGATIVE); LEUKOCYTE ESTERASE ,URINE NEGATIVE (NEGATIVE); NITRITE,URINE NEGATIVE (NEGATIVE); PROTEIN,URINE DIPSTICK NEGATIVE (NEGATIVE)
[2021-10-07 14:59] LABS: URINE UROBILINOGEN 1 mg/dL (0.2 - 1)
[2021-10-07 15:04] LABS: BACTERIA,URINE FEW /HPF; EPITHELIAL CELLS,URINE FEW /LPF; RBC,URINE 0-5 /HPF (0-5); WBC,URINE (MAN) 0-5 /HPF (0-5)
[2021-10-07] MEDS: SODIUM CHLORIDE 0.9% 1000ML 1,000 ML IV SCH (16:16)
[2021-10-07] MEDS ORDERED: ASPIRIN 325 MG TAB PO ONE (16:30)
[2021-10-07] MEDS ORDERED: ASPIRIN81 MG PO (17:33)
[2021-10-07] MEDS ORDERED: BENICAR5 MG PO (17:33)
[2021-10-07] MEDS ORDERED: BENICAR20 MG PO (17:35)
[2021-10-07 17:36] VITALS: BP 160/82
[2021-10-07 17:52] VITALS: BP 160/82
[2021-10-07] MEDS ORDERED: ONDANSETRON HCL INJ 2MG/ML 2ML 2 MG/ML VIAL IV PRN (18:45)
[2021-10-07] MEDS ORDERED: HYDRALAZINE HCL 20 MG/ML VIAL IV PRN (18:45)
[2021-10-07] MEDS ORDERED: TEMAZEPAM 7.5 MG CAP PO PRN (18:45)
[2021-10-07] MEDS ORDERED: ACETAMINOPHEN 325 MG TAB PO PRN (18:45)
[2021-10-07] MEDS ORDERED: POLYETHYLENE GLYCOL 3350 17 GM PACK PO PRN (18:45)
[2021-10-07 20:00] VITALS: BP 166/98
[2021-10-07] MEDS: METFORMIN HCL 500 MG TAB PO SCH (20:49)
[2021-10-07] MEDS: ACETAMINOPHEN/CODEINE 300MG - 30MG TAB PO PRN (21:04)
[2021-10-07 21:43] LABS: CREATINE KINASE MB 0.3 ng/mL (0-5.0)
[2021-10-08] VITALS (8 sets, daily range): BP systolic 137–156; BP diastolic 92–101
[2021-10-08] MEDS: LEVOTHYROXINE SODIUM 25 MCG TABLET PO SCH (05:10)
[2021-10-08] MEDS: SODIUM CHLORIDE 0.9% 1000ML 1,000 ML IV SCH ×3 (05:10→16:02)
[2021-10-08 06:14] LABS: BASOPHILS % 0.4 % (0.0-1.0); EOSINOPHILS # (AUTO) 0.2 (0.0-0.4); EOSINOPHILS % 2.2 % (0.0-6.0); HEMATOCRIT 40.3 % (38.2-49.6); HEMOGLOBIN 12.5 g/dL (14.0-18.0); LYMPHOCYTES # (AUTO) 1.7 (1.0-3.2); LYMPHOCYTES % 20.7 % (18.0-39.1); MEAN CORPUSCULAR HEMOGLOBIN 29.6 pg (28-32); MEAN CORPUSCULAR VOLUME 95.5 fL (81-99); MONOCYTES # (AUTO) 0.7 (0.2-0.8); MONOCYTES % 7.8 % (4.4-11.3); NEUTROPHILS # (AUTO) 5.7 (2.1-6.9); NEUTROPHILS % 68.5 % (38.7-80.0); PLATELET COUNT 150 x10e3/uL (140-360); RED BLOOD COUNT 4.22 x10e6/uL (4.3-5.7); RED CELL DISTRIBUTION WIDTH 14.2 % (11.7-14.4)
[2021-10-08 06:46] LABS: CALCIUM 8.1 mg/dL (8.4-10.2); CREATININE, SERUM 0.91 mg/dL (0.72-1.25); MAGNESIUM 1.7 MG/DL (1.3-2.1); PHOSPHORUS 3.5 MG/DL (2.3-4.7)
[2021-10-08 07:04] LABS: CREATINE KINASE MB 1.1 ng/mL (0-5.0)
[2021-10-08] MEDS ORDERED: ONDANSETRON HCL 4 MG ORAL DISINTEGRATING TAB PO PRN (08:30)
[2021-10-08] MEDS: METFORMIN HCL 500 MG TAB PO SCH ×3 (08:39→21:00)
[2021-10-08] MEDS: DOCUSATE SODIUM 100 MG CAP PO SCH ×2 (08:40→16:59)
[2021-10-08] MEDS: GLIPIZIDE 5 MG TAB PO SCH ×2 (08:40→16:59)
[2021-10-08] MEDS: ISOSORBIDE MONONITRATE 30 MG TAB CR PO SCH (08:40)
[2021-10-08] MEDS: FUROSEMIDE 40 MG TAB PO SCH (08:41)
[2021-10-08] MEDS: FAMOTIDINE 20 MG/2 ML VIAL IV SCH ×2 (08:41→16:59)
[2021-10-08] MEDS: OLMESARTAN 20 MG TAB PO SCH (08:41)
[2021-10-08] MEDS: ATORVASTATIN 20 MG TAB PO SCH (08:41)
[2021-10-08] MEDS: ASPIRIN 81 MG CHEW TAB PO SCH (08:41)
[2021-10-08] MEDS: CARVEDILOL 12.5 MG TAB PO SCH ×2 (08:42→17:00)
[2021-10-08] MEDS: CLOPIDOGREL BISULFATE 75 MG TAB PO SCH (08:42)
[2021-10-08] MEDS: ACETAMINOPHEN/CODEINE 300MG - 30MG TAB PO PRN ×2 (08:45→17:00)
[2021-10-08] MEDS ORDERED: TEMAZEPAM 15 MG CAP PO PRN (11:45)
[2021-10-09] VITALS (14 sets, daily range): BP systolic 126–170; BP diastolic 64–100
[2021-10-09] MEDS: SODIUM CHLORIDE 0.9% 1000ML 1,000 ML IV SCH ×4 (05:50→22:10)
[2021-10-09] MEDS: ACETAMINOPHEN/CODEINE 300MG - 30MG TAB PO PRN ×2 (05:50→20:37)
[2021-10-09] MEDS: LEVOTHYROXINE SODIUM 25 MCG TABLET PO SCH (06:00)
[2021-10-09] MEDS: ASPIRIN 81 MG CHEW TAB PO SCH (09:00)
[2021-10-09] MEDS: ISOSORBIDE MONONITRATE 30 MG TAB CR PO SCH (09:00)
[2021-10-09] MEDS: CLOPIDOGREL BISULFATE 75 MG TAB PO SCH (09:00)
[2021-10-09] MEDS: GLIPIZIDE 5 MG TAB PO SCH ×2 (09:00→16:58)
[2021-10-09] MEDS: CARVEDILOL 12.5 MG TAB PO SCH ×2 (09:00→17:00)
[2021-10-09] MEDS: DOCUSATE SODIUM 100 MG CAP PO SCH ×2 (09:00→16:58)
[2021-10-09] MEDS: OLMESARTAN 20 MG TAB PO SCH (09:00)
[2021-10-09] MEDS: FUROSEMIDE 40 MG TAB PO SCH (09:00)
[2021-10-09] MEDS: ATORVASTATIN 20 MG TAB PO SCH (09:00)
[2021-10-09] MEDS: METFORMIN HCL 500 MG TAB PO SCH ×3 (09:00→20:37)
[2021-10-09] MEDS: FAMOTIDINE 20 MG/2 ML VIAL IV SCH ×2 (09:12→16:58)
[2021-10-09] MEDS ORDERED: SODIUM CHLORIDE 0.9% 1000ML 1,000 ML ONE (13:42)
[2021-10-09] MEDS ORDERED: LIDOCAINE HCL 2% LOCAL 20 ML VIAL ONE (13:42)
[2021-10-09] MEDS ORDERED: IOPAMIDOL 370 MG/ML 200 ML INFUS..BTL INJ ONE (13:42)
[2021-10-09] MEDS ORDERED: HEPARIN SOD/SOD CHLORIDE 2,000 ML ONE (13:42)
[2021-10-09] MEDS ORDERED: MIDAZOLAM HCL 2 MG/2 ML VIAL ONE ×2 (13:42→14:12)
[2021-10-09] MEDS ORDERED: FENTANYL CITRATE/PF 100MCG/2 ML INJ ONE (13:42)
[2021-10-09] MEDS ORDERED: LABETALOL HCL 20 ML ONE (14:25)
[2021-10-09] MEDS ORDERED: LABETALOL HCL 5 MG/ML 20ML VIAL IV PRN (14:45)
[2021-10-09] MEDS: RANOLAZINE 500 MG TABSR PO SCH (17:00)
[2021-10-10 00:51] VITALS: BP 128/76
[2021-10-10 05:38] VITALS: BP 162/96
[2021-10-10] MEDS: LEVOTHYROXINE SODIUM 25 MCG TABLET PO SCH (06:00)
[2021-10-10] MEDS: ACETAMINOPHEN/CODEINE 300MG - 30MG TAB PO PRN ×2 (06:00→16:30)
[2021-10-10 06:56] LABS: CALCIUM 8.7 mg/dL (8.4-10.2); CREATININE, SERUM 1.04 mg/dL (0.72-1.25)
[2021-10-10 07:57] VITALS: BP 154/91
[2021-10-10 08:50] VITALS: BP 154/91
[2021-10-10] MEDS: CARVEDILOL 12.5 MG TAB PO SCH ×2 (09:25→16:29)
[2021-10-10] MEDS: SODIUM CHLORIDE 0.9% 1000ML 1,000 ML IV SCH (09:25)
[2021-10-10] MEDS: CLOPIDOGREL BISULFATE 75 MG TAB PO SCH (09:25)
[2021-10-10] MEDS: METFORMIN HCL 500 MG TAB PO SCH ×2 (09:25→15:37)
[2021-10-10] MEDS: OLMESARTAN 20 MG TAB PO SCH (09:25)
[2021-10-10] MEDS: GLIPIZIDE 5 MG TAB PO SCH ×2 (09:25→16:29)
[2021-10-10] MEDS: DOCUSATE SODIUM 100 MG CAP PO SCH ×2 (09:25→16:29)
[2021-10-10] MEDS: ASPIRIN 81 MG CHEW TAB PO SCH (09:25)
[2021-10-10] MEDS: FUROSEMIDE 40 MG TAB PO SCH (09:25)
[2021-10-10] MEDS: FAMOTIDINE 20 MG/2 ML VIAL IV SCH (09:25)
[2021-10-10] MEDS: ATORVASTATIN 20 MG TAB PO SCH (09:25)
[2021-10-10] MEDS: RANOLAZINE 500 MG TABSR PO SCH ×2 (09:26→16:30)
[2021-10-10 11:54] VITALS: BP 155/87
[2021-10-10] MEDS ORDERED: RANEXA500 MG PO (15:33)
[2021-10-10 16:04] VITALS: BP 164/80
[2021-10-10] MEDS ORDERED: FAMOTIDINE 20 MG TAB PO SCH (16:30)
== END 2021-10-10 16:33 | disposition home or self-care (01) | DRG 287 ==
LOC: ER 13:49 → ERHOLD 15:59 → MED/SURG3 16:30 → OBSVTOIN 10-09 09:40
PROVIDERS: ADMIT Internal Medicine; ATTEND Internal Medicine
PROC: 4A023N7 Measurement of Cardiac Sampling and Pressure, Left Heart, Percutaneous Approach (ICD-10-PCS; principal; 2021-10-09)
PROC: B2111ZZ Fluoroscopy of Multiple Coronary Arteries using Low Osmolar Contrast (ICD-10-PCS; 2021-10-09)
PROC: B2151ZZ Fluoroscopy of Left Heart using Low Osmolar Contrast (ICD-10-PCS; 2021-10-09)
DX: T82.855A Stenosis of coronary artery stent, initial encounter (principal); I50.22 Chronic systolic (congestive) heart failure; I11.0 Hypertensive heart disease with heart failure; E78.5 Hyperlipidemia, unspecified; G47.00 Insomnia, unspecified; E03.9 Hypothyroidism, unspecified; E11.40 Type 2 diabetes mellitus with diabetic neuropathy, unspecified; E11.65 Type 2 diabetes mellitus with hyperglycemia; I25.2 Old myocardial infarction; I25.10 Atherosclerotic heart disease of native coronary artery without angina pectoris; Z95.5 Presence of coronary angioplasty implant and graft; F41.9 Anxiety disorder, unspecified; Z20.822 Contact with and (suspected) exposure to COVID-19; Z88.5 Allergy status to narcotic agent; Z88.0 Allergy status to penicillin; Z88.2 Allergy status to sulfonamides
CPT/HCPCS: 36415; 71045; 80048; 80053; 81001; 82550; 82553; 82948; 83735; 83880; 84100; 84484; 85025; 85610; 85730; 93005; 93454; 93971; 96361; 99152; 99284; C1769; G0378; J0360; J2001; J2250; J3010; J7030; Q9967; U0002

== ENCOUNTER 2022-04-21 16:30 | Emergency (ER) | payer MEDICARE, OTHER ==
[~2022-04-21] VITALS: Ht 177.8 cm; Wt 119.7 kg
[~2022-04-21 16:30] MED LIST changes: +ASPIRIN81 MG PO; +BENICAR5 MG PO; +RANEXA500 MG PO
[2022-04-21 16:46] LABS: BASOPHILS # (AUTO) 0.1 (0.0-0.1); BASOPHILS % 0.7 % (0.0-1.0); EOSINOPHILS # (AUTO) 0.2 (0.0-0.4); HEMATOCRIT 39.4 % (38.2-49.6); HEMOGLOBIN 13.1 g/dL (14.0-18.0); LYMPHOCYTES # (AUTO) 1.8 (1.0-3.2); LYMPHOCYTES % 16.7 % (18.0-39.1); MEAN CORPUSCULAR HEMOGLOBIN 30.5 pg (28-32); MEAN CORPUSCULAR HGB CONC 33.2 g/dL (31-35); MEAN CORPUSCULAR VOLUME 91.8 fL (81-99); MONOCYTES # (AUTO) 0.8 (0.2-0.8); MONOCYTES % 7.1 % (4.4-11.3); NEUTROPHILS # (AUTO) 7.6 (2.1-6.9); NEUTROPHILS % 72.5 % (38.7-80.0); PLATELET COUNT 218 x10e3/uL (140-360); RED BLOOD COUNT 4.29 x10e6/uL (4.3-5.7); RED CELL DISTRIBUTION WIDTH 13.2 % (11.7-14.4)
[2022-04-21 17:05] LABS: ALBUMIN 3.7 g/dL (3.5-5.0); ANION GAP 17.3 mmol/L (8-16); CALCIUM 8.6 mg/dL (8.4-10.2); CREATININE, SERUM 1.68 mg/dL (0.72-1.25); POTASSIUM 4.3 mmol/L (3.5-5.1)
== END 2022-04-21 18:00 | disposition home or self-care (01) ==
LOC: ER 16:38
DX: R06.00 Dyspnea, unspecified (principal); R07.9 Chest pain, unspecified; R94.31 Abnormal electrocardiogram [ECG] [EKG]
CPT/HCPCS: 36415; 71045; 80053; 83880; 84484; 85025; 85379; 93005; 99282

== ENCOUNTER 2022-04-27 09:17 | Emergency (ER) | payer MEDICARE, OTHER ==
[~2022-04-27] VITALS: Ht 177.8 cm; Wt 119.7 kg
[2022-04-27] MEDS ORDERED: LOSARTAN POTAS100 MG PO (09:44)
[2022-04-27] MEDS ORDERED: RANEXA1000 MG PO (09:45)
[2022-04-27] MEDS ORDERED: MINOXIDIL10 MG PO (09:45)
[2022-04-27 09:49] LABS: BASOPHILS % 0.5 % (0.0-1.0); EOSINOPHILS # (AUTO) 0.3 (0.0-0.4); EOSINOPHILS % 4.4 % (0.0-6.0); HEMOGLOBIN 12.9 g/dL (14.0-18.0); LYMPHOCYTES # (AUTO) 1.4 (1.0-3.2); LYMPHOCYTES % 17.9 % (18.0-39.1); MEAN CORPUSCULAR HEMOGLOBIN 30.6 pg (28-32); MEAN CORPUSCULAR HGB CONC 33.1 g/dL (31-35); MEAN CORPUSCULAR VOLUME 92.4 fL (81-99); MONOCYTES # (AUTO) 0.6 (0.2-0.8); MONOCYTES % 7.1 % (4.4-11.3); NEUTROPHILS # (AUTO) 5.4 (2.1-6.9); NEUTROPHILS % 69.6 % (38.7-80.0); PLATELET COUNT 197 x10e3/uL (140-360); RED BLOOD COUNT 4.22 x10e6/uL (4.3-5.7); RED CELL DISTRIBUTION WIDTH 13.2 % (11.7-14.4)
[2022-04-27 10:17] LABS: INR 0.86; PROTHROMBIN TIME 12.5 seconds (11.9-14.5)
[2022-04-27 10:18] LABS: PARTIAL THROMBOPLASTIN TIME 26.2 seconds (23.8-35.5)
[2022-04-27 10:23] LABS: ALBUMIN 3.6 g/dL (3.5-5.0); ANION GAP 14.4 mmol/L (8-16); CALCIUM 8.6 mg/dL (8.4-10.2); CREATININE, SERUM 1.54 mg/dL (0.72-1.25); MAGNESIUM 1.8 MG/DL (1.3-2.1); POTASSIUM 4.4 mmol/L (3.5-5.1)
[2022-04-27 10:29] LABS: CREATINE KINASE MB 1.3 ng/mL (0-5.0)
[2022-04-27 12:16] VITALS: BP 140/110
== END 2022-04-27 12:20 | disposition home or self-care (01) ==
LOC: ER 09:25
DX: J40 Bronchitis, not specified as acute or chronic (principal); I11.0 Hypertensive heart disease with heart failure; I50.9 Heart failure, unspecified; E11.9 Type 2 diabetes mellitus without complications; I25.2 Old myocardial infarction; E03.9 Hypothyroidism, unspecified; Z88.6 Allergy status to analgesic agent; Z88.1 Allergy status to other antibiotic agents; Z88.0 Allergy status to penicillin; Z88.2 Allergy status to sulfonamides; Z20.822 Contact with and (suspected) exposure to COVID-19; Z79.82 Long term (current) use of aspirin; Z79.02 Long term (current) use of antithrombotics/antiplatelets; Z79.84 Long term (current) use of oral hypoglycemic drugs; Z79.899 Other long term (current) drug therapy; Z95.5 Presence of coronary angioplasty implant and graft
CPT/HCPCS: 36415; 71045; 80053; 82550; 82553; 83735; 83880; 84484; 85025; 85610; 85730; U0002; 93005

== ENCOUNTER 2022-06-02 20:55 | Emergency (ER) | payer MEDICARE, OTHER ==
[~2022-06-02] VITALS: Ht 177.8 cm; Wt 124.7 kg
[~2022-06-02 20:55] MED LIST changes: +LOSARTAN POTAS100 MG PO; +MINOXIDIL10 MG PO; +RANEXA1000 MG PO
[2022-06-02 21:53] LABS: BASOPHILS # (AUTO) 0.1 (0.0-0.1); BASOPHILS % 0.5 % (0.0-1.0); EOSINOPHILS # (AUTO) 0.3 (0.0-0.4); EOSINOPHILS % 2.5 % (0.0-6.0); HEMATOCRIT 39.5 % (38.2-49.6); HEMOGLOBIN 12.5 g/dL (14.0-18.0); LYMPHOCYTES % 20.1 % (18.0-39.1); MEAN CORPUSCULAR HEMOGLOBIN 30.3 pg (28-32); MEAN CORPUSCULAR HGB CONC 31.6 g/dL (31-35); MEAN CORPUSCULAR VOLUME 95.6 fL (81-99); MONOCYTES # (AUTO) 0.8 (0.2-0.8); NEUTROPHILS # (AUTO) 6.9 (2.1-6.9); NEUTROPHILS % 68.5 % (38.7-80.0); PLATELET COUNT 236 x10e3/uL (140-360); RED BLOOD COUNT 4.13 x10e6/uL (4.3-5.7)
[2022-06-02 22:20] LABS: ALBUMIN 3.7 g/dL (3.5-5.0); ALBUMIN/GLOBULIN RATIO 1.1 (0.8-2.0); ANION GAP 15.9 mmol/L (8-16); CALCIUM 9.3 mg/dL (8.4-10.2); CREATININE, SERUM 1.34 mg/dL (0.72-1.25); POTASSIUM 3.9 mmol/L (3.5-5.1)
[2022-06-02 22:28] LABS: CREATINE KINASE MB 1.2 ng/mL (0-5.0)
== END 2022-06-02 22:54 | disposition home or self-care (01) ==
LOC: ER 21:05
DX: R07.89 Other chest pain (principal); I10 Essential (primary) hypertension; E11.65 Type 2 diabetes mellitus with hyperglycemia; E78.5 Hyperlipidemia, unspecified; K21.9 Gastro-esophageal reflux disease without esophagitis; E03.9 Hypothyroidism, unspecified; I25.10 Atherosclerotic heart disease of native coronary artery without angina pectoris; I25.2 Old myocardial infarction; Z95.5 Presence of coronary angioplasty implant and graft; R94.31 Abnormal electrocardiogram [ECG] [EKG]
CPT/HCPCS: 36415; 80053; 82550; 82553; 84484; 85025; 93005; 99283